=== PATIENT | male | born 1970 | race Caucasian/White ===

== ENCOUNTER → 2017-11-15 10:34 | Outpatient (CLI) | payer BC, SELFPAY ==
--- NOTE | 2017-11-16 09:31 | STRESSREP ---
Stress Test Report Treadmill EKG results: Resting EKG: Normal sinus rhythm, normal axis, normal intervals, no evidence of previous myocardial infarction. Treadmill EKG: The patient exercise according to Roosevelt protocol for 9 minutes and 1 second achieving a workload of 10.40 mets. Resting heart rate was initially 76 bpm jan to maximum 157 bpm which represents 91% of the maximal age-predicted heart rate. Resting blood pressure was 138/90, and jan to max of 164/84. Test was terminated due to the attainment of target heart rate and calf pain. During exercise the patient's heart rate increased as expected. Patient had no dynamic EKG changes to suggest ischemia. No anginal symptoms noted. Conclusions normal, adequate, treadmill EKG. Negative for ischemia by EKG criteria. No anginal symptoms noted. No arrhythmias noted. Appropriate blood pressure response to exercise. Average exercise capacity for age. No complications.
--- NOTE | 2017-11-16 09:34 | STRESSREP_ITS ---
Stress Test Report Treadmill EKG results: Resting EKG: Normal sinus rhythm, normal axis, normal intervals, no evidence of previous myocardial infarction. Treadmill EKG: The patient exercise according to Roosevelt protocol for 9 minutes and 1 second achieving a workload of 10.40 mets. Resting heart rate was initially 76 bpm jan to maximum 157 bpm which represents 91% of the maximal age -predicted heart rate. Resting blood pressure was 138/90, and jan to max of 164/84. Test was terminated due to the attainment of target heart rate and calf pain. During exercise the patient's heart rate increased as expected. Patient had no dynamic EKG changes to suggest ischemia. No anginal symptoms noted. Conclusions normal, adequate, treadmill EKG. Negative for ischemia by EKG criteria. No anginal symptoms noted. No arrhythmias noted. Appropriate blood pressure response to exercise. Average exercise capacity for age. No complications.
== END ==
DX: R07.9 Chest pain, unspecified (principal); I10 Essential (primary) hypertension; R42 Dizziness and giddiness; R53.83 Other fatigue
CPT/HCPCS: 93017

== ENCOUNTER 2018-05-20 09:43 | Emergency (ER) | payer OTHER, BC, SELFPAY ==
[2018-05-20 09:43] VITALS: BP 162/98; PULSE 84; RESP 18; TEMP 36.4; O2SAT 98; BMI 39.5
--- NOTE | 2018-05-20 10:07 | RAD_ITS ---
STUDY: X-RAY - RIGHT RADIUS AND ULNA REASON FOR EXAM: Male, 47 years old. Pain following injury. TECHNIQUE: 2 view(s) of the forearm. COMPARISON: None. FINDINGS: There is non-specific soft tissue swelling. Normal visualized radius. Normal visualized ulna. RAD/Forearm 2 Views IMPRESSION: Soft tissue swelling. Electronically Signed: Lane Inman MD at 10:16 EST Tel [phone], Service support ,
--- NOTE | 2018-05-20 10:36 | ED.VISSUMM ---
- ER Visit Summary Date of Service: 05/20/18 Chief Complaint: [right forearm injury] History of Present Illness: The patient is a 47 M [that presents after he fell at work landing on a pipe injuring his right forearm. He did not hit his head or neck or have any loss of consciousness. He denies any other trauma or injury. He has obvious soft tissue swelling to his right mid lateral forearm. No significant pain with range of motion. Tetanus up-to-date. No other complaints.] Physical Examination: [General: The patient appears well and in no apparent distress. Patient is resting comfortably on cart. Skin: Warm, dry, no pallor noted. No rash. Abrasion right forearm with soft tissue swelling. Head: Normocephalic, atraumatic Neck: Supple, nontender. FROM. ENT: Moist mucus membranes, pharynx within normal limits. Cardiovascular: Regular Rate and Rhythm, no gallups or rubs Respiratory: Patient is in no distress, no accessory muscle use, lungs are clear to auscultation, no wheezing, rales or rhonchi Musculoskeletal: normal ROM, no deformity, no tenderness, no swelling. 2+ radial and DP pulses symmetric. Soft tissue swelling mid right lateral forearm. All compartments soft. No significant pain with range of motion. No bruising or ecchymosis. GI: No tenderness to palpation, no masses appreciated. No rebound, guarding, or rigidity noted. Neurological: A&O, normal strength and sensation. 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 Xray shows soft tissue swelling but no acute fractures. Wound will be cleaned, irrigated, and dressed. It does not require repair and is consistent with more of an abrasion. He will follow with corporate care and I will write him return to work with limited use of right arm for 1 day. He was instructed to return with any new or worsening symptoms. Patient understands and is agreeable with this plan of care. Patient was discharged home in stable and improved condition.] Treatment Plan: [see above] Disposition: [discharge home] Impression: [Right forearm contusion and abrasion] This note was generated with [employer] software. It may contain incorrect words, spelling, and punctuation that were not noted in review of the chart prior to signing ED Disposition - Plan for ED Patient: Disposition: Home or Assisted Living Chief Complaint: Upper Extremity Injury Instructions: ED Contusion Upper Ext Referrals: Corporate,[facility] [GROUP OF PHYSICIANS] -
--- NOTE | 2018-05-20 10:40 | ED.DCSUM_ITS ---
- ER Visit Summary Date of Service: 05/20/18 Chief Complaint: [right forearm injury] History of Present Illness: The patient is a 47 M [that presents after he fell at work landing on a pipe injuring his right forearm. He did not hit his head or neck or have any loss of consciousness. He denies any other trauma or injury. He has obvious soft tissue swelling to his right mid lateral forearm. No significant pain with range of motion. Tetanus up-to-date. No other complaints.] Physical Examination: [General: The patient appears well and in no apparent distress. Patient is resting comfortably on cart. Skin: Warm, dry, no pallor noted. No rash. Abrasion right forearm with soft tissue swelling. Head: Normocephalic, atraumatic Neck: Supple, nontender. FROM. ENT: Moist mucus membranes, pharynx within normal limits. Cardiovascular: Regular Rate and Rhythm, no gallups or rubs Respiratory: Patient is in no distress, no accessory muscle use, lungs are clear to auscultation, no wheezing, rales or rhonchi Musculoskeletal: normal ROM, no deformity, no tenderness, no swelling. 2+ radial and DP pulses symmetric. Soft tissue swelling mid right lateral forearm. All compartments soft. No significant pain with range of motion. No bruising or ecchymosis. GI: No tenderness to palpation, no masses appreciated. No rebound, guarding, or rigidity noted. Neurological: A&O, normal strength and sensation. 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 Xray shows soft tissue swelling but no acute fractures. Wound will be cleaned, irrigated, and dressed. It does not require repair and is consistent with more of an abrasion. He will follow with corporate care and I will write him return to work with limited use of right arm for 1 day. He was instructed to return with any new or worsening symptoms. Patient understands and is agreeable with this plan of care. Patient was discharged home in stable and improved condition.] Treatment Plan: [see above] Disposition: [discharge home] Impression: [Right forearm contusion and abrasion] This note was generated with [employer] software. It may contain incorrect words, spelling, and punctuation that were not noted in review of the chart prior to signing ED Disposition - Plan for ED Patient: Disposition: Home or Assisted Living Chief Complaint: Upper Extremity Injury Instructions: ED Contusion Upper Ext Referrals: Corporate,[facility] [GROUP OF PHYSICIANS] -
== END 2018-05-20 10:57 | disposition home or self-care (01) ==
PROVIDERS: Emergency Provider Emergency Medicine; Family Provider Family Medicine; PCP Family Medicine
DX: S50.11XA Contusion of right forearm, initial encounter (principal); W01.10XA Fall on same level from slipping, tripping and stumbling with subsequent striking against unspecified object, initial encounter; Y93.9 Activity, unspecified; Y92.89 Other specified places as the place of occurrence of the external cause; Y99.0 Civilian activity done for income or pay; I10 Essential (primary) hypertension; Z79.899 Other long term (current) drug therapy
CPT/HCPCS: 73090; 99283

== ENCOUNTER → 2018-08-01 12:08 | Outpatient (CLI) | payer BC, SELFPAY | PROVIDERS: Family Provider Family Medicine; PCP Family Medicine; Referring Provider Family Medicine | DX: G47.33 Obstructive sleep apnea (adult) (pediatric) (principal) | CPT/HCPCS: 95806 ==

== ENCOUNTER → 2018-09-13 11:00 | Outpatient (CLI) | payer BC, SELFPAY ==
[2018-08-21 12:08] VITALS: BMI 39.6
== END ==
PROVIDERS: Family Provider Family Medicine; PCP Family Medicine; Referring Provider Nurse Practitioner Acute Care; Visit Provider Nurse Practitioner Acute Care
DX: Z00.00 Encounter for general adult medical examination without abnormal findings (principal)

== ENCOUNTER 2019-05-04 14:07 | Emergency (ER) | payer BC, SELFPAY ==
[2018-08-21 12:08] VITALS: BMI 39.6
[2019-05-04 14:08] VITALS: BP 160/89; PULSE 81; RESP 16; TEMP 36.4; O2SAT 98; BMI 39.5
--- NOTE | 2019-05-04 14:17 | ED.VIS.GEN ---
History of Present Illness <Yumi Goldstein - Last Filed: 05/04/19 14:31> Narrative: 48-year-old male presents with concern for left thigh tingling and pain. 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 States he is here today because he wanted to make sure he did not have a blood clot. States that 2 weeks ago he had a right shoulder replacement and has been taking aspirin since that time but wanted to be seen to rule out a DVT. States this is the same pain that he had before is just worsened. States he has been very sedentary and sitting around in a chair. He denies any swelling or trauma. Denies any fever or chills. Denies any history of DVT or pulmonary embolism. <Ronnell Cintron - Last Filed: 05/04/19 14:40> Chief Complaint: Lower Extremity Injury Past Medical History <Yumi Goldstein - Last Filed: 05/04/19 14:31> Prior records reviewed: Yes Past Medical History: None Surgical History: - - Shoulder replacement Smoking Status: Former smoker <Ronnell Cintron - Last Filed: 05/04/19 14:40> - Allergies and Home Meds Allergies/Adverse Reactions: Allergies No Known Allergies Allergy (Verified 08/21/18 14:53) Primary Care Physician: Steven Sandy MD [Primary Care Provider] - Review of Systems General: Denies: Chills, Fever, Sweats Eyes: Denies: Visual changes - bilaterally, Diplopia ENT: Denies: Rhinorrhea, Sore throat Cardiovascular: Denies: Chest pain, Palpitations Respiratory: Denies: Dyspnea, Cough, Dyspnea on exertion Gastrointestinal: Denies: Abdominal pain, Nausea, Vomiting, Diarrhea, Melena, Hematochezia Genitourinary: Denies: Dysuria, Hematuria, Frequency Musculoskeletal: Reports: Myalgias. Denies: Back pain, Extremity Pain Skin: Denies: Rash, Wounds Neurological: Denies: Headache, Weakness, Numbness <Ronnell Cintron - Last Filed: 05/04/19 14:40> Physical Exam Vital Signs/Narrative: Vital Signs Temp Pulse Resp BP Pulse Ox 05/04/19 14:08 97.6 F L 81 16 160/89 H 98 <Yumi Goldstein - Last Filed: 05/04/19 14:31> Vital Signs/Narrative: Vital Signs Temp Pulse Resp BP Pulse Ox 05/04/19 14:08 97.6 F L 81 16 160/89 H 98 General: Well nourished, Well developed, No Acute Distress Head: Normocephalic, Atraumatic Eyes: Perrl, EOMI ENT: Moist mucous membranes, No rhinorrhea Neck: Supple, Nontender Cardiovascular: Regular rate, Regular rhythm, No murmurs Respiratory: No distress, CTA bilaterally, Chest nontender Abdomen: Soft, Nontender, Nondistended, Normal bowel sounds Back: Nontender, Normal Inspection Extremities: Nontender, No edema Skin: Normal color, No rash Neurological: Alert, Oriented x3, Cranial nerves II-XII grossly intact, Normal Strength, Normal Sensation Psychological: Normal affect, Normal Mood <Ronnell Cintron - Last Filed: 05/04/19 14:40> Diagnostic/Tx/Re-eval - Medical Decision Making Patient was seen with Dr. Wilburn agree with history and physical as above, the patient is complaining of a pain to the left lateral thigh that he has had intermittently it seems worse after he had a recent right shoulder surgery he has no other complaints no fever no cough no chest pain abdominal pain history of [place] PE or DVT on exam of the left thigh area laterally is unremarkable he has full range of motion of the left lower extremity he has no signs of DVT no edema discussed all the above with him at this time please refer to the full chart for full details and disposition the patient is comfortable discharge home follow-up with his outpatient providers and orthopedic surgeons <Yumi Goldstein - Last Filed: 05/04/19 14:31> - Medical Decision Making Appears well nontoxic. Vital signs within normal limits. Likely has continued lateral femoral nerve syndrome. Was advised on weight reduction. Patient will follow-up with his primary care provider or his orthopedist for this issue. Naproxen for home. Patient agreeable and discharged home in stable condition. 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
[2019-05-04 14:38] VITALS: RESP 16
--- NOTE | 2019-05-04 14:39 | ED.RN ---
REVIEWED D/C INSTRUCTIONS, FOLLOW UP CARE, PRESCRIPTION, AND S/S THAT WOULD WARRANT A RETURN TO THE ED WITH PT. PT VERBALIZED AN UNDERSTANDING AND DENIES FURTHER QUESTIONS FOR THIS RN. PT SKIN P/W/D, RESP EVEN AND UNLABORED, PT A&O X 3, NO DISTRESS NOTED. PT AMBULATED OUT OF ED, GAIT STEADY.
== END 2019-05-04 14:41 | disposition home or self-care (01) ==
LOC: ED 14:32
PROVIDERS: Emergency Provider Emergency Medicine; Family Provider Family Medicine; PCP Family Medicine
DX: G57.22 Lesion of femoral nerve, left lower limb (principal); Z87.891 Personal history of nicotine dependence
CPT/HCPCS: 99282

== ENCOUNTER 2019-09-03 11:05 | Observation (INO) | payer BC, SELFPAY ==
[2019-09-03] VITALS (9 sets, daily range): BP systolic 125–141; BP diastolic 77–97; PULSE 63–91; RESP 13–18; TEMP 36.4–36.9; O2SAT 95–99; BMI 42.5; BMI 41.1
--- NOTE | 2019-09-03 11:13 | ED.VIS.GEN ---
History of Present Illness Chief Complaint: Chest Pain Informant: Patient Onset: Today Current Severity: Mild Maximum Severity: Moderate Narrative: Patient present secondary to chest pain. He was at work this morning, squatted down using a didier to raise a semitruck. Patient states he developed some chest tightness. He stood up and walked around for little bit and the pain abated. He went back to using the didier again and developed chest pain again. After walking around and drinking little bit of water he states pain has lessened but not completely resolved. Pain does not radiate down his arms. He denies shortness of breath or diaphoresis. He did state he felt a little bit woozy which she later describes as lightheadedness after standing. Patient denies history of cardiac problems. He had a stress test in October 2017 that was unremarkable. - Past Medical History (1) High cholesterol Status: Chronic (2) MARIA DOLORES (obstructive sleep apnea) Status: Chronic (3) Obesity (BMI 30-39.9) Status: Chronic (4) Staghorn kidney stones Status: Chronic Past Medical History - Allergies and Home Meds Allergies/Adverse Reactions: Allergies No Known Allergies Allergy (Verified 09/03/19 11:07) Primary Care Physician: Steven Sandy MD [Primary Care Provider] - Prior records reviewed: Yes Surgical History: - - Shoulder replacement Lives: Spouse/ Significant Other Smoking Status: Former smoker Review of Systems General: Denies: Chills, Fever Eyes: Denies: Visual changes - bilaterally ENT: Denies: Bilateral ear pain Cardiovascular: Reports: Chest pain. Denies: Palpitations, Heart racing Respiratory: Denies: Dyspnea, Cough Gastrointestinal: Denies: Abdominal pain, Nausea, Vomiting, Diarrhea Genitourinary: Denies: Dysuria Musculoskeletal: Denies: Neck pain, Back pain, Extremity Pain Skin: Denies: Rash Neurological: Denies: Headache Hematologic: Denies: Easy bruising, Easy bleeding Allergy: Denies: Uticaria Physical Exam Vital Signs/Narrative: Vital Signs Temp Pulse Resp BP Pulse Ox 09/03/19 11:05 98.4 F 91 16 138/85 H 95 Inital Vital Signs reviewed: Yes General: Well nourished, Well developed Head: Normocephalic ENT: Moist mucous membranes Neck: Supple Cardiovascular: Regular rate, Regular rhythm Respiratory: No distress, CTA bilaterally, Chest nontender Abdomen: Soft, Tender - Mild epigastric tenderness., Hypoactive bowel sounds. Negative for: Guarding, Rebound tenderness Skin: Normal color Neurological: Alert, Oriented x3 Psychological: Normal affect Diagnostic/Tx/Re-eval Impressions Chest X-Ray 09/03/19 11:30 IMPRESSION: Stable examination. No acute abnormality is seen. Electronically Signed: Lane Inman, at 11:48 EDT , Service support , 09/03/19 11:30 Chest 1 View (Portable) [RAD] Stat Laboratory Results 09/03/19 09/03/19 11:18 11:18 WBC 5.8 RBC 4.88 Hgb 14.7 Hct 42.2 MCV 86.5 MCH 30.1 MCHC 34.8 RDW Std Deviation 40.2 RDW Coeff of Sima 12.9 Plt Count 252 MPV 10.2 Immature Gran % (Auto) 0.200 Neut % (Auto) 56.1 Lymph % (Auto) 30.3 [place] % (Auto) 9.1 Eos % (Auto) 3.6 Baso % (Auto) 0.7 Absolute Neuts (auto) 3.3 Absolute Lymphs (auto) 1.76 Nucleated RBC % 0 Sodium 142 Potassium 3.6 Chloride 108 H Carbon Dioxide 30.0 Anion Gap 4 L BUN 21 H Creatinine 1.06 Estim Creat Clear Calc 80.66 Est GFR (MDRD) Af Amer 95 Est GFR (MDRD) Non-Af 79 BUN/Creatinine Ratio 19.8 Glucose 107 H Calcium 9.4 Troponin I < 0.015 - EKG Initial EKG Interpretation: Sinus Rhythm - Sinus 81 with no acute ischemia. - Medical Decision Making Patient was given aspirin, morphine, and Zofran here. Patient does not have reproducible chest wall pain. We discussed his test results and he is agreed to overnight observation for cycling of cardiac enzymes. ED Disposition - Plan for ED Patient: Disposition: Acute Care Hospital [facility] Diagnosis: Chest pain Referrals: Steven Sandy MD [Primary Care Provider] -
[2019-09-03 11:25] LABS: Absolute Lymphocyte Count 1.76 X10^3/uL (0.83-4.51); Absolute Neutrophil Count 3.3 X10^3/uL (2.0-7.7); Basophil# 0.04 X10^3/uL; Basophil% 0.7 % (0-1); Eosinophil# 0.21 X10^3/uL; Eosinophils% 3.6 % (0-5); Hematocrit 42.2 % (40-54); Hemoglobin 14.7 g/dL (13.0-16.5); Lymphocyte # 1.76 X10^3/ul (4.0); Lymphocyte % 30.3 % (19-41); Mean Corp Hgb Conc 34.8 g/dL (32-36); Mean Corpuscular Hgb 30.1 pg (27.0-32.0); Mean Corpuscular Volume 86.5 fL (80-94); Mean Platelet Vol. 10.2 fl (6.2-12.0); Monocyte# 0.53 X10^3/uL; Monocyte% 9.1 % (0-10); NRBC Flagged by Analyzer 0 % (0-5); Neutrophil # 3.25 X10^3/uL (2.7-7.7); Neutrophil % 56.1 % (47-70); Platelet Count 252 K/mm3 (150-450); RBC Distribution Width CV 12.9 % (11.6-14.6); RBC Distribution Width SD 40.2 fl (35.1-43.9); Red Blood Count 4.88 M/mm3 (4.6-6.2); White Blood Count 5.8 K/mm3 (4.4-11.0)
--- NOTE | 2019-09-03 11:30 | RAD_ITS ---
STUDY: X-RAY CHEST REASON FOR EXAM: Male, 49 years old. Dull left sided chest pain, felt and quot; woozy and quot; TECHNIQUE: Single AP portable view of the chest. COMPARISON: Comparison is made with prior study February 27, 2014. FINDINGS: EKG electrodes are seen. There is evidence of an azygous lobe. Once again, a linear opacity seen along the medial aspect of the right upper lobe adjacent to the azygos lobe. This may represent an area of scarring. There is no demonstrated pleural abnormality. Normal size heart. Normal mediastinum and joana. Normal visualized pulmonary arteries. Normal visualized aortic arch and descending thoracic aorta. Normal visualized thoracic spine. Normal visualized ribs, clavicles, and shoulders. There is no demonstrated abnormality of the visualized soft tissue structures of the upper abdomen. RAD/Chest 1 View (Portable) IMPRESSION: Stable examination. No acute abnormality is seen. Electronically Signed: Lane Inman, at 11:48 EDT , Service support ,
[2019-09-03] MEDS: Aspirin 81 MG TAB.CHEW 324 MG PO (11:33)
[2019-09-03 11:42] LABS: Anion Gap 4 (5-15); BUN 21 mg/dL (7-18); BUN/Creat Ratio 19.8 RATIO (10-20); Calcium,Total 9.4 mg/dL (8.5-10.1); Chloride 108 mmol/L (98-107); Creatinine, Serum 1.06 mg/dL (0.70-1.30); EST Glomerular Filtration Rate 79 mL/min (>60); Est Glom Filt Rate - Afr Amer 95 mL/min (>60); Estimated Creatinine Clearance 80.66 ml/min; Glucose 107 mg/dL (74-106); Potassium 3.6 mmol/L (3.5-5.1); Sodium Level 142 mmol/L (136-145)
[2019-09-03] MEDS: 0.9% Normal Saline 1,000 ML 150 ML IV (11:48)
--- NOTE | 2019-09-03 12:39 | NURSING ---
DR ORTIZ FOR DR BETHEA
--- NOTE | 2019-09-03 12:46 | HP.PCM_ITS ---
History of Present Illness Date of Admission: 09/03/19 Chief Complaint: chest pain The patient is a 49 year old M with a past medical history of hypertension and hyperlipidemia. He was admitted through the ED on 09/03/2019 with a complaint of chest pain was started on the day of admission. 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 In the process, he started having severe chest pain so he stopped. He rested a bit and chest pain got better. On attempting to check of the 18 arroyo again, chest pain recurred and was associated with increased sweating and some lightheadedness but no palpitations, dizziness, nausea vomiting. Patient states he has not had chest pain like this in the past. Chest pain was sharp retrosternal and did not radiate. On admission in the ED, vitals were stable. CBC was unremarkable and initial troponin was negative. EKG showed normal sinus rhythm with no acute ST changes and chest x-ray showed no acute cardiopulmonary process. He has been admitted to be managed for chest pain rule out ACS. [] Past Medical History Past Medical History (Chronic Problems): Chronic Problems (Last Reviewed 08/21/18 @ 15:00 by Shira Amos NP-C) High cholesterol (Chronic) MARIA DOLORES (obstructive sleep apnea) (Chronic) Obesity (BMI 30-39.9) (Chronic) Staghorn kidney stones (Chronic) Medical History: Medical History (Last Reviewed 08/21/18 @ 15:00 by Shira Amos NP-C) Dyslipidemia E78.5 Elevated fasting blood sugar R73.01 GERD (gastroesophageal reflux disease) K21.9 Hypospadias Q54.9 Kidney stone N20.0 Reconstruction of L face Sleep apnea G47.30 Hypertension I10 Allergies No Known Allergies Allergy (Verified 09/03/19 11:07) Home Medications: Ambulatory Orders Medication Instructions Recorded Lisinopril [Zestril] 40 mg PO BID 01/23/14 Hydrochlorothiazide 1 tab PO DAILY 05/20/18 Surgical History: Surgical History (Last Reviewed 08/21/18 @ 15:00 by Shira Amos NP-C) H/O lithotripsy Z98.890 History of arthroscopy of both knees Z98.890 History of shoulder surgery Z98.890 LEFT SHOULDER Surgical History: - - Shoulder replacement Lives: Spouse/ Significant Other Smoking Status: Former smoker Alcohol: None Drugs: None - *Family History Maternal Family History: Family History (Last Reviewed 08/21/18 @ 15:00 by CHRISTINE Ye) Brother Testicular cancer Review of Systems Constitutional: Denies: Chills, Fever, Malaise, Weakness, Weight Change Eyes: Denies: Blurred vision HEENT: Denies: Head Aches, Sinus Congestion, Sinus Drainage Cardiovascular: Reports: Chest Pain. Denies: Chest Pressure, Chest Tightness, Heaviness, Light Headedness, Orthopnea, Palpitations, Syncope Respiratory: Denies: Cough, Shortness of Breath, Shortness of breath at rest, Sputum production Gastrointestinal: Denies: Abdominal Pain, Nausea, Vomiting Genitourinary: Denies: Dysuria Musculoskeletal: Denies: Joint Pain, Joint Tenderness Skin: Denies: Rash, Wounds Neurological: Denies: Numbness, Tingling, Focal weakness Psychiatric: Denies: Anxiety, Depression, Homicidal Ideations, Suicidal Ideations Hematologic/ Lymphatic: Denies: Easy Bruising, Easy Bleeding VTE Information - Inpt Only VTE Present on Admission: No VTE Pharm Prophylaxis ordered?: Yes Patient Problems: Active and Suspected Problems (Last Reviewed 08/21/18 @ 15:00 by CHRISTINE Ye) Chest pain (Acute) - Physical Exam Vitals/I&O's: Vital Signs Temp Pulse Resp BP Pulse Ox 98.4 F 91 16 138/85 H 95 09/03/19 11:05 09/03/19 11:05 09/03/19 11:05 09/03/19 11:05 09/03/19 11:05 Oxygen Flow Rate (L/min) 2 Oxygen Delivery Method Nasal Cannula Weight: 279 lb 12.266 oz Body Mass Index (BMI) 42.5 General: Alert, Oriented x3, Cooperative HEENT: Atraumatic, PERRLA, EOMI, Normocephalic Oral: Moist Mucosa Neck: Supple, No JVD, Negative Carotid Bruits Lungs: Clear to auscultation, Normal air movement, No rhonchi, No wheeze Cardiovascular: Regular rate, Regular Rhythm, Normal S1, Normal S2, No murmurs Abdomen: Bowel Sounds Present, Soft, Non Tender, Non-Distended, No Hepato-sp lenomegaly Extremities: No clubbing, No cyanosis, No edema, Capillary Refill Less than 3 Seconds Skin: No rashes, No breakdown Musculoskeletal: No Tenderness to Palpation of Joints or Extremities Lymphatic: No Cervical, Supraclavicular, or Inguinal Adenopathy Neurological: Cranial nerves II-XII grossly intact, Neuro grossly intact, Motor Exam 5/5 strength throughout Psych/Mental Status: Normal Affect, Appropriate, Alert and oriented to time, place, person, mood and affect Laboratory Results 09/03/19 11:18: WBC 5.8, RBC 4.88, Hgb 14.7, Hct 42.2, MCV 86.5, MCH 30.1, MCHC 34.8, RDW Std Deviation 40.2, RDW Coeff of Sima 12.9, Plt Count 252, MPV 10.2, Immature Gran % (Auto) 0.200, Neut % (Auto) 56.1, Lymph % (Auto) 30.3, [place] % (Auto) 9.1, Eos % (Auto) 3.6, Baso % (Auto) 0.7, Absolute Neuts (auto) 3.3, Absolute Lymphs (auto) 1.76, Nucleated RBC % 0 09/03/19 11:18: Sodium 142, Potassium 3.6, Chloride 108 H, Carbon Dioxide 30.0, Anion Gap 4 L, BUN 21 H, Creatinine 1.06, Estim Creat Clear Calc 80.66, Est GFR (MDRD) Af Amer 95, Est GFR (MDRD) Non-Af 79, BUN/Creatinine Ratio 19.8, Glucose 107 H, Calcium 9.4, Troponin I < 0.015 Diagnostic Data Chest X-Ray 09/03/19 11:30 IMPRESSION: Stable examination. No acute abnormality is seen. Electronically Signed: Lane Inman, at 11:48 EDT , Service support , Current Medications Sodium Chloride () 1,000 mls @ 150 mls/hr IV .[id number] [facility] Last Admin: 09/03/19 11:48 Dose: 150 mls/hr Documented by: Assessment/Plan All Active Problems (Last Reviewed 08/21/18 @ 15:00 by Shira Amos, ARNOLDO-C) Chest pain (Acute) Vertigo (Acute) 49 y.o male admitted with a complaitn of chest pain 1. Chest pain to r/o ACS * Admit to PCU telemetry * Cycle troponins x3. * Sublingual nitro as needed. P.O. aspirin 81 mg daily. * for stress test tomorrow if troponins are negative * 2. Hypertension: on HCTZ and lisinopril. Bp fairly well controlled 3. Hyperlipidemia: not on any oral meds. Check lipid panel DVT prophylaxis: lovenox Code status: full code * Patient counseled extensively about different types of CODE STATUS including full code, DNR CCA and DNR CCA. Patient elects to be full code. * Total [id number] time 16 minutes. OBSV E&M: 20963 Initial observation care L2 Procedures: 17674 Advncd Care Plan 30 Min
--- NOTE | 2019-09-03 13:59 | EKG12_ITS ---
Test Reason : CP ADMISSION EKG Blood Pressure : / mmHG Vent. Rate : 079 BPM Atrial Rate : 079 BPM P-R Int : 166 ms QRS Dur : 110 ms QT Int : 426 ms P-R-T Axes : 055 -19 013 degrees QTc Int : 488 ms Normal sinus rhythm Prolonged QT Abnormal ECG When compared with ECG of 03-SEP-2019 11:11, MANUAL COMPARISON REQUIRED, DATA IS UNCONFIRMED Confirmed by ANDERSON BAILEY, ELICIA ([id number]), editor book BECCA ALAMO ([id number]) on 09/09/2019 9:25:22 AM Referred By: DIANA Confirmed By:ТАТЬЯНА BARRON MD
[2019-09-04 03:05] VITALS: PULSE 70
[2019-09-04 04:00] VITALS: BP 120/85; PULSE 72; RESP 16; TEMP 36.4; O2SAT 94
[2019-09-04 05:32] LABS: Absolute Lymphocyte Count 1.95 X10^3/uL (0.83-4.51); Absolute Neutrophil Count 2.9 X10^3/uL (2.0-7.7); Basophil# 0.03 X10^3/uL; Basophil% 0.5 % (0-1); Eosinophil# 0.35 X10^3/uL; Eosinophils% 6.1 % (0-5); Hemoglobin 14.3 g/dL (13.0-16.5); Lymphocyte # 1.95 X10^3/ul (4.0); Lymphocyte % 33.8 % (19-41); Mean Corpuscular Hgb 29.7 pg (27.0-32.0); Mean Corpuscular Volume 87.1 fL (80-94); Mean Platelet Vol. 10.2 fl (6.2-12.0); Monocyte# 0.53 X10^3/uL; Monocyte% 9.2 % (0-10); NRBC Flagged by Analyzer 0 % (0-5); Neutrophil % 50.2 % (47-70); Platelet Count 241 K/mm3 (150-450); RBC Distribution Width CV 13.1 % (11.6-14.6); RBC Distribution Width SD 40.9 fl (35.1-43.9); Red Blood Count 4.82 M/mm3 (4.6-6.2); White Blood Count 5.8 K/mm3 (4.4-11.0)
[2019-09-04 05:51] LABS: Anion Gap 4 (5-15); BUN 19 mg/dL (7-18); BUN/Creat Ratio 19.7 RATIO (10-20); Chloride 107 mmol/L (98-107); Creatinine, Serum 0.96 mg/dL (0.70-1.30); EST Glomerular Filtration Rate 88 mL/min (>60); Est Glom Filt Rate - Afr Amer 106 mL/min (>60); Estimated Creatinine Clearance 89.06 ml/min; Glucose 136 mg/dL (74-106); Potassium 3.5 mmol/L (3.5-5.1); Sodium Level 140 mmol/L (136-145)
[2019-09-04] MEDS: Aspirin E.C. 81 MG Tablet PO (06:24)
[2019-09-04] MEDS: Lisinopril 40 MG Tablet PO (06:24)
[2019-09-04 07:00] VITALS: PULSE 74
[2019-09-04 10:34] VITALS: BP 111/89; PULSE 88; RESP 16; TEMP 36.9; O2SAT 94
[2019-09-04] MEDS: hydroCHLOROthiazide 25 MG Tablet 50 MG PO (10:40)
--- NOTE | 2019-09-04 11:04 | STRESSREP_ITS ---
Stress Test Report Date: 09/04/2019 Procedure: Exercise tolerance test/imaging study Indications: Chest pain Consent: Per the patient Procedure: The patient exercised on a Roosevelt protocol for 7 minutes and 30 seconds achieving a peak heart rate of 173 bpm (101 % predicted maximal heart rate) with a peak blood pressure 180/88 mmHg and a peak MET capacity of 9.3 METs. The baseline ECG demonstrated normal sinus rhythm. The peak exercise ECG demonstrated no significant ST-T changes. EKG during recovery revealed no significant ST-T changes [There were no cardiac dysrhythmias pretest, during exercise, or recovery]. The functional capacity was considered normal for age. There was [no complaint of chest discomfort during exercise or recovery]. The examination was discontinued secondary to dyspnea, calf pain. Impression: 1. Technically adequate (percent predicted maximal heart rate greater than 85%) exercise tolerance test 2. Stress test is negative for exercise-induced EKG changes of ischemia 3. The test test is negative for exercise-induced chest pain 4. Functional capacity is normal for age 5. Nuclear images pending Myocardial perfusion imaging study: Technique: The patient was injected with 15 mCi of technetium 99m Cardiolite and subsequently rest SPECT Cardiolite nuclear imaging was obtained in the horizon edwina long, vertical long, and short axis views. The patient exercised on a Roosevelt protocol. Please see above for details. The patient was injected with 45 mCi of technetium 99m Cardiolite and subsequently stress SPECT Cardiolite nuclear imaging was obtained in the horizontal long, vertical long, and short axis views. A gated Cardiolite study at peak stress was obtained. Interpretation: Rest and stress SPECT Cardiolite nuclear imaging status post realignment, normalization, and attenuation correction, demonstrates overall normal myocardial radioisotope uptake. The gated Cardiolite study demonstrates no significant regional wall motion abnormalities. The reported LVEF is 57 %. Impression: 1. There is no evidence of significant ischemia or infarction. 2. The gated Cardiolite study reports an LVEF of 57 %. This note was generated with Emergency [employer] software. It may contain incorrect words, spelling, and punctuation that were not noted in checking the note before signing.
--- NOTE | 2019-09-04 11:28 | DS.PCM_ITS ---
Discharge Date and Diagnosis - Problem List Patient Problems: Active and Suspected Problems (Last Reviewed 08/21/18 @ 15:00 by CHRISTINE Ye) Chest pain (Acute) Date of Admission: 09/03/19 Date of Discharge: 09/04/19 - Primary Discharge Diagnosis Active and Suspected Problems (Last Reviewed 08/21/18 @ 15:00 by CHRISTINE Ye) Chest pain (Acute) - Secondary Discharge Diagnosis Chronic Problems (Last Reviewed 08/21/18 @ 15:00 by CHRISTINE Ye) High cholesterol (Chronic) MARIA DOLORES (obstructive sleep apnea) (Chronic) Obesity (BMI 30-39.9) (Chronic) [place]ag[place] kidney stones (Chronic) Hospital Course and Treatment Imaging Results: 09/04/19 05:55 Nuclear Stress Test - Treadmil [NM] AM (NON MEDS) Operations: None Procedures: Stress test Summary of Care Provided: The patient is a 49 year old M with a past medical history of hypertension and hyperlipidemia. He was admitted through the ED on 09/03/2019 with a complaint of chest pain was started on the day of admission. 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 In the process, he started having severe chest pain so he stopped. He rested a bit and chest pain got better. On attempting to check of the 18 arroyo again, chest pain recurred and was associated with increased sweating and some lightheadedness but no palpitations, dizziness, nausea vomiting. Patient states he has not had chest pain like this in the past. Chest pain was sharp retrosternal and did not radiate. On admission in the ED, vitals were stable. CBC was unremarkable and initial troponin was negative. EKG showed normal sinus rhythm with no acute ST changes and chest x-ray showed no acute cardiopulmonary process. He was admitted to be managed for chest pain rule out ACS. Chest pain did not recur during admission. He has a nuclear exercise stress test on 09/04/2019 which showed no evidence of significant ischemia or infarction with a left ventricular EF of 57%. He remained stable and was discharged home on 09/04/2019. He is to follow-up with his primary care doctor within 1 week. Patient seen and examined prior to discharge. He had no complaints and felt well. Chest pain had not recurred. Review of systems was otherwise negative. Labs and vitals reviewed. Home medication reviewed and reconciled. o/e: Vital Signs Temp Pulse Resp BP Pulse Ox 98.4 F 88 16 111/89 H 94 09/04/19 10:34 09/04/19 10:34 09/04/19 10:34 09/04/19 10:34 09/04/19 10:34 General: Alert, Oriented x3, Cooperative HEENT: Atraumatic, PERRLA, EOMI, Normocephalic Oral: Moist Mucosa Neck: Supple, No JVD, Negative Carotid Bruits Lungs: Clear to auscultation, Normal air movement, No rhonchi, No wheeze Cardiovascular: Regular rate, Regular Rhythm, Normal S1, Normal S2, No murmurs Abdomen: Bowel Sounds Present, Soft, Non Tender, Non-Distended, No Hepato- splenomegaly Extremities: No clubbing, No cyanosis, No edema, Capillary Refill Less than 3 Seconds Skin: No rashes, No breakdown Musculoskeletal: No Tenderness to Palpation of Joints or Extremities Lymphatic: No Cervical, Supraclavicular, or Inguinal Adenopathy Neurological: Cranial nerves II-XII grossly intact, Neuro grossly intact, Motor Exam 5/5 strength throughout Psych/Mental Status: Normal Affect, Appropriate, Alert and oriented to time, place, person, mood and affect Plan as above. Patient Problems: Active and Suspected Problems (Last Reviewed 08/21/18 @ 15:00 by Shira Amos NP-C) Chest pain (Acute) - Physical Exam Vitals/I&O's: Vital Signs Temp Pulse Resp BP Pulse Ox 98.4 F 88 16 111/89 H 94 09/04/19 10:34 09/04/19 10:34 09/04/19 10:34 09/04/19 10:34 09/04/19 10:34 Oxygen Flow Rate (L/min) 2 Oxygen Delivery Method Room Air Weight: 270 lb 4.587 oz Body Mass Index (BMI) 41.1 Intake and Output for Last 24 Hours 09/02/19 09/03/19 09/04/19 23:59 23:59 23:59 Intake Total 852.5 / 852.5 50 / 50 Balance 852.5 / 852.5 50 / 50 Laboratory Results 09/03/19 11:18: Sodium 142, Potassium 3.6, Chloride 108 H, Carbon Dioxide 30.0, Anion Gap 4 L, BUN 21 H, Creatinine 1.06, Estim Creat Clear Calc 80.66, Est GFR (MDRD) Af Amer 95, Est GFR (MDRD) Non-Af 79, BUN/Creatinine Ratio 19.8, Glucose 107 H, Calcium 9.4, Troponin I < 0.015 09/03/19 14:35: Troponin I < 0.015 09/03/19 16:54: Troponin I < 0.015 09/04/19 05:14: WBC 5.8, RBC 4.82, Hgb 14.3, Hct 42.0, MCV 87.1, MCH 29.7, MCHC 34.0, RDW Std Deviation 40.9, RDW Coeff of Sima 13.1, Plt Count 241, MPV 10.2, Immature Gran % (Auto) 0.200, Neut % (Auto) 50.2, Lymph % (Auto) 33.8, Wilson % (Auto) 9.2, Eos % (Auto) 6.1 H, Baso % (Auto) 0.5, Absolute Neuts (auto) 2.9, Absolute Lymphs (auto) 1.95, Nucleated RBC % 0 09/04/19 05:14: Sodium 140, Potassium 3.5, Chloride 107, Carbon Dioxide 29.0, Anion Gap 4 L, BUN 19 H, Creatinine 0.96, Estim Creat Clear Calc 89.06, Est GFR (MDRD) Af Amer 106, Est GFR (MDRD) Non-Af 88, BUN/Creatinine Ratio 19.7, Glucose 136 H, Calcium 9.0 Current Medications Albuterol Sulfate (Ventolin Aerosols) 2.5 mg INHALATION Q2H PRN PRN PRN Reason: SOB/Wheezing Aspirin (Ecotrin) 81 mg PO DAILY@0800 [facility] Last Admin: 09/04/19 06:24 Dose: 81 mg Documented by: Dextrose (D50w Syringe) 0 gm IV X1 PRN; Protocol PRN Reason: Hypoglycemia Glucagon () 1 mg IM .X1 PRN PRN Reason: Hypoglycemia Hydrochlorothiazide (Hctz) 50 mg PO DAILY [facility] Last Admin: 09/04/19 10:40 Dose: 50 mg Documented by: Sodium Chloride () 250 mls @ 15 mls/hr IV .[id number] PRN PRN Reason: Saline Flush Sodium Chloride () 250 mls @ 15 mls/hr IV .[id number] PRN PRN Reason: Additional IVPB Infusion Lisinopril (Zestril) 40 mg PO DAILY [facility] Last Admin: 09/04/19 06:24 Dose: 40 mg Documented by: Nitroglycerin (Nitrostat) 0.4 mg SUBLINGUAL Q5M PRN PRN Reason: CHEST PAIN Ondansetron HCl (Zofran) 4 mg IV Q8H PRN PRN PRN Reason: NAUSEA/VOMITING Sodium Chloride () 10 - 40 ml IV UD PRN PRN Reason: SALINE FLUSH Discharge Diet: Low fat/ Low Cholesterol Discharge Activity: Return to Normal Activity Call your doctor if you observe: Shortness of breath, Dizziness, Fainting spells, Chest pain Home Medications: Medications to take at Discharge Lisinopril [Zestril] 40 mg PO DAILY 01/23/14 Hydrochlorothiazide 1 tab PO DAILY 05/20/18 Primary Care Physician: Steven Sandy MD [Primary Care Provider] - Please follow up with your Primary Care Physician in: 1-2 weeks Patient Instructions: What Is Angina?, Warning Signs of a Heart Attack, ED Chest Pain NonCardiac Disposition: Home Minutes spent on discharge:: 35 Patient Condition:: Stable Medical Necessity - Tobacco Use Smoking Status: Former smoker Meaningful Use Info Meaningful Use Diagnoses (Choose all that apply): None applicable OBSV E&M: [id number] Observation care discharge
--- NOTE | 2019-09-04 11:29 | DCINST_ITS ---
- Discharge Diagnoses Current Active Problems: Current Active and Chronic Problems (Last Reviewed 08/21/18 @ 15:00 by CHRISTINE eY) Chest pain (Acute) You will use the following diet at home:: Cardiac Your food should be the consistency of: Regular Your liquids should be the consistency of: Regular/Thin Discharge Activity: Return to Normal Activity Weight Bearing Status: Weight bearing as tolerated Call your doctor if you observe: Shortness of breath, Dizziness, Chest pain Instructions: Warning Signs of a Heart Attack, ED Chest Pain NonCardiac, What Is Angina? Allergies/Adverse Reactions: Allergies No Known Allergies Allergy (Verified 09/03/19 11:07) Medications to take at Discharge Lisinopril [Zestril] 40 mg PO DAILY 01/23/14 Hydrochlorothiazide 1 tab PO DAILY 05/20/18 Primary Care Physician: Steven Sandy MD [Primary Care Provider] - Please follow up with your Primary Care Physician in: one week Test Results: Test results from this visit will be discussed in further detail at your follow- up appointment, if applicable. Proposed Discharge Date: 09/04/19
== END 2019-09-04 11:29 | disposition home or self-care (01) ==
LOC: ED 12:30 → PCU 09-04 08:27
PROVIDERS: Admitting Provider Student in an Organized Health Care Education/Training Program; Emergency Provider Emergency Medicine; PCP Family Medicine; Visit Provider Student in an Organized Health Care Education/Training Program
DX: R07.89 Other chest pain (principal); R42 Dizziness and giddiness; G47.33 Obstructive sleep apnea (adult) (pediatric); E66.9 Obesity, unspecified; E78.5 Hyperlipidemia, unspecified; K21.9 Gastro-esophageal reflux disease without esophagitis; Z68.41 Body mass index [BMI] 40.0-44.9, adult; Z87.891 Personal history of nicotine dependence; Z79.899 Other long term (current) drug therapy
CPT/HCPCS: 36415; 71045; 78452; 80048; 84484; 85025; 93005; 93017; 96360; 96361; 99218; 99285; A9500; J7030; A4216; G0378; J2405

== ENCOUNTER 2020-11-16 10:11 | Emergency (ER) | payer BC, SELFPAY ==
[2019-09-03 13:27] VITALS: BMI 41.1
[2020-11-16 10:13] VITALS: BP 145/85; PULSE 68; RESP 16; TEMP 36.1; O2SAT 96; BMI 38.9
--- NOTE | 2020-11-16 10:52 | CT_ITS ---
STUDY: CT ABDOMEN AND PELVIS WITH CONTRAST REASON FOR EXAM: Male, 50 years old. Abdominal pain. Diarrhea. Blood in the stool. RADIATION DOSAGE (If Supplied By Facility): CTDIvol = ( 18.65 ) mGy, DLP = ( 1290.51 ) mGycm TECHNIQUE: Transaxial images were obtained from the dome of the diaphragm to the symphysis pubis without oral contrast. Oral and amp; IV Gastrografin and amp; 100mL Isovue-300 was administered. Sagittal and coronal images were reconstructed. Individualized dose optimization techniques were used for this CT. COMPARISON: Comparison is made with prior study dated 04/03/2014. FINDINGS: The visualized lung bases are unremarkable. The visualized portions of the heart are within normal limits. There is decreased attenuation of the liver consistent with steatosis. Normal gallbladder and extrahepatic biliary system. Normal spleen. Normal pancreas. Normal bilateral adrenal glands. Normal right kidney. There is a 5.8 mm nonobstructive calculus in the lower pole calyx of the left kidney. There is evidence of a mild degree of left hydronephrosis and dilated left renal pelvis to the level of the ureteropelvic junction. This may represent scarring at the ureteral pelvic junction. Normal visualized stomach. Normal small intestine. Normal colon. The appendix is visualized and appears normal. Normal abdominal aorta. Normal inferior vena cava. Normal retroperitoneum. Diffuse bladder wall thickening although the bladder is not adequately distended at this time. Normal abdominal wall. There are mild degenerative changes of the visualized lumbar spine. There is evidence of a spondylolysis of the pars interarticularis of the L5 vertebrae. CT/Abdomen/Pelvis WITH Contrast IMPRESSION: Nonobstructive calculus in the lower pole calyx of the left kidney. Mild degree of left hydronephrosis and dilated renal pelvis to the level of the ureteral pelvic junction. Diffuse fatty infiltration of the liver. Electronically Signed: Laen Inman MD at 13:17 EDT , Service support ,
--- NOTE | 2020-11-16 10:53 | EX.ED.DYSGE1 ---
HPI History of Present Illness Chief Complaint: GI Bleed Informant: patient Narrative Narrative: 50-year-old male presents to the emergency room with bright red blood per rectum. Patient states that he has had 3 semiformed bowel movements today and each 1 has had bright red blood. He notes a lower left suprapubic pain. He states it is not bad but knows that it is there. In the past couple months he has been experiencing some intermittent diarrhea and abdominal pain. He also notes some bloating. He did see his family physician for this and is set up to have a CAT scan tomorrow. He denies any rectal pain. No straining or prolonged sitting for bowel movements. 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 No history of colitis. No prior colonoscopy. [facility] Medical History (Updated 11/16/20 @ 13:[address] Ashish Monreal DO) Dyslipidemia Elevated fasting blood sugar GERD (gastroesophageal reflux disease) Hypertension Hypospadias Kidney stone Reconstruction of L face Sleep apnea Home Medications lisinopril 40 mg PO DAILY 01/23/14 [History Last Taken 09/03/19 08:00] hydrochlorothiazide 1 tab PO DAILY 05/20/18 [History Last Taken 09/03/19 08:00] omeprazole 40 mg PO DAILY 11/16/20 [History Last Taken Unknown] potassium chloride 10 meq PO DAILY 11/16/20 [History Last Taken Unknown] Allergy/AdvReac Type Severity Reaction Status Date / Time No Known Allergies Allergy Verified 11/16/20 10:12 Family History (Reviewed 08/21/18 @ 15:00 by Shira Amos COMPOSING MACHINE OPERATOR/TENDER, COMPOSING MACHINE OPERATOR/TENDER-C) Brother Testicular cancer Surgical History H/O lithotripsy History of arthroscopy of both knees History of shoulder surgery Social History (Updated 11/16/20 @ 10:[address] Ashish Monreal DO) Smoking Status: Former smoker substance use type: does not use ROS ROS ED Constitutional Constitutional ED: Denies chills or weight loss Eyes Eyes: Denies change in vision or diplopia ENT ENT ED: Denies ear pain, rhinorrhea or sore throat Cardiovascular Cardiovascular: Denies chest pain, orthopnea, palpitations or racing heartbeat Respiratory/Chest Respiratory/Chest: Denies cough, dyspnea or orthopnea Gastrointestinal Gastrointestinal: Reports abdominal pain and other Details: Hematochezia ; Denies diarrhea, nausea or vomiting Genitourinary Genitourinary ED: Denies dysuria, hematuria or urinary frequency Musculoskeletal Musculoskeletal: Denies arthralgias or myalgias Integumentary Denies abscess or rash Neurologic Neurologic: Denies headache(s) or weakness Psychiatric Psychiatric: Denies anxiety, depression, suicidal ideation or suicidal thoughts Endocrine Endocrinology: Denies polydipsia, polyphagia or polyuria Allergic/Immunologic Allergic/Immunologic ED: Denies mouth swelling, tongue swelling or urticaria EXAM Physical Exam Const Vital Signs: 11/16/20 10:13 11/16/20 13:02 Temperature 97.0 F L Temperature Source Temporal Pulse Rate 68 64 Respiratory Rate 16 15 Blood Pressure 145/85 H 129/81 H Blood Pressure Mean 105 97 Pulse Ox 96 96 Oxygen Delivery Method Room Air Room Air Positive well nourished, well developed and obese General Appearance ED: well developed Nutritional Appearance: obese HEENT Reports normocephalic, head/scalp atraumatic and moist mucous membranes Eyes PERRL and EOMs intact bilaterally Neck no lymphadenopathy, supple and no JVD Resp normal respiratory effort and clear to auscultation bilaterally Cardio regular rate, regular rhythm and no murmurs GI GI Narrative: Rectal examination reveals bright red blood on the glove. No palpable or visualized hemorrhoids. No obvious anal fissure Palpation: soft and tender LLQ and suprapubic Back/Spine no CVA tenderness and normal ROM Extremity normal to inspection General Extremety ED: Negative for edema General Extremity: Negative for edema Neuro oriented x3 and CN's II-XII intact bilaterally Sensorium / Orientation: alert Motor Exam: strength 5/5 throughout Psych mental status grossly normal Mood & Affect: Negative for depressed or tearful Skin no rashes or lesions noted and no wounds MDM MDM MDM Narrative Medical decision making narrative: Patient has had no further bleeding here. His hemoglobin is stable at 13.9. CT does not demonstrate any colitis or diverticulosis. Patient will be discharged home instructions to follow-up for colonoscopy return if worsening I will touch base with his family doctor. Lab Data Attestation: I reviewed the patient's lab results. Labs: Laboratory Results - last 24 hr 11/16/20 11/16/20 11:07 11:07 WBC 6.5 RBC 4.47 L Hgb 13.9 Hct 39.1 L MCV 87.5 MCH 31.1 MCHC 35.5 RDW Std Deviation 39.9 RDW Coeff of Sima 12.6 Plt Count 244 MPV 10.0 Immature Gran % (Auto) 0.600 Neut % (Auto) 63.6 Lymph % (Auto) 26.6 [place] % (Auto) 6.2 Eos % (Auto) 2.5 Baso % (Auto) 0.5 Absolute Neuts (auto) 4.1 Absolute Lymphs (auto) 1.73 Nucleated RBC % 0 Sodium 141 Potassium 3.8 Chloride 107 Carbon Dioxide 31.0 Anion Gap 3 L BUN 22 H Creatinine 0.98 Estim Creat Clear Calc 86.28 Est GFR (MDRD) Af Amer 104 Est GFR (MDRD) Non-Af 86 BUN/Creatinine Ratio 22.6 H Glucose 114 H Calcium 8.8 Total Bilirubin 1.00 AST 17 ALT 27 Alkaline Phosphatase 74 Total Protein 6.6 Albumin 3.5 Globulin 3.1 Albumin/Globulin Ratio 1.1 Lipase 81 Radiography Diagnostic Testing: Radiology Impression Abdomen/Pelvis CT 11/16/20 10:52 IMPRESSION: Nonobstructive calculus in the lower pole calyx of the left kidney. Mild degree of left hydronephrosis and dilated renal pelvis to the level of the ureteral pelvic junction. Diffuse fatty infiltration of the liver. Electronically Signed: Lane Inman MD at 13:17 EDT , Service support , Discharge Plan Triage Chief Complaint: GI Bleed ED Provider: Ashish Monreal Dx/Rx/DC Orders Clinical Impression: Acute lower GI bleeding Instructions: ED Lower GI Bleeding (Stable) Prescriptions: No Action lisinopril 40 MG tablet 40 mg PO DAILY RF: 0 hydrochlorothiazide 50 MG tablet 1 tab PO DAILY RF: 0 potassium chloride 10 mEq tablet extended release 10 meq PO DAILY RF: 0 omeprazole 40 mg capsule,delayed release(DR/EC) 40 mg PO DAILY RF: 0 Primary Care Provider: Steven Sandy Referrals: Steven Sandy MD [Primary Care Provider] - As soon as possible (You will need to have a follow-up colonoscopy) Disposition Disposition: Home, Self Care
[2020-11-16] MEDS: 0.9% Normal Saline 1,000 ML 1000 ML IV (11:10)
[2020-11-16 11:20] LABS: Absolute Lymphocyte Count 1.73 X10^3/uL (0.83-4.51); Absolute Neutrophil Count 4.1 X10^3/uL (2.0-7.7); Basophil# 0.03 X10^3/uL; Basophil% 0.5 % (0-1); Eosinophil# 0.16 X10^3/uL; Eosinophils% 2.5 % (0-5); Hematocrit 39.1 % (40-54); Hemoglobin 13.9 g/dL (13.0-16.5); Lymphocyte # 1.73 X10^3/ul (0.83-4.51); Lymphocyte % 26.6 % (19-41); Mean Corp Hgb Conc 35.5 g/dL (32-36); Mean Corpuscular Hgb 31.1 pg (27.0-32.0); Mean Corpuscular Volume 87.5 fL (80-94); Monocyte% 6.2 % (0-10); NRBC Flagged by Analyzer 0 % (0-5); Neutrophil # 4.14 X10^3/uL (2.7-7.7); Neutrophil % 63.6 % (47-70); Platelet Count 244 K/mm3 (150-450); RBC Distribution Width CV 12.6 % (11.6-14.6); RBC Distribution Width SD 39.9 fl (35.1-43.9); Red Blood Count 4.47 M/mm3 (4.6-6.2); White Blood Count 6.5 K/mm3 (4.4-11.0)
[2020-11-16 11:33] LABS: ALB/GLOB Ratio 1.1 RATIO (0.9-2.4); AST(SGOT) 17 U/L (15-37); Alanine Aminotransfer ALT/SGPT 27 U/L (16-61); Albumin, Serum 3.5 g/dL (3.2-5.0); Alkaline Phosphatase 74 U/L (45-117); Anion Gap 3 (5-15); BUN 22 mg/dL (7-18); BUN/Creat Ratio 22.6 RATIO (10-20); Calcium,Total 8.8 mg/dL (8.5-10.1); Chloride 107 mmol/L (98-107); Creatinine, Serum 0.98 mg/dL (0.70-1.30); EST Glomerular Filtration Rate 86 mL/min (>60); Est Glom Filt Rate - Afr Amer 104 mL/min (>60); Estimated Creatinine Clearance 86.28 ml/min; Globulin 3.1 g/dL (2.2-4.2); Glucose 114 mg/dL (74-106); Lipase 81 U/L (73-393); Potassium 3.8 mmol/L (3.5-5.1); Protein, Total 6.6 g/dL (6.4-8.2); Sodium Level 141 mmol/L (136-145)
[2020-11-16 13:02] VITALS: BP 129/81; PULSE 64; RESP 15; O2SAT 96
[2020-11-16 14:20] VITALS: BP 133/69; PULSE 75; RESP 16; O2SAT 98
== END 2020-11-16 14:23 | disposition home or self-care (01) ==
PROVIDERS: Emergency Provider Emergency Medicine; PCP Family Medicine
DX: K92.2 Gastrointestinal hemorrhage, unspecified (principal); I10 Essential (primary) hypertension; K21.9 Gastro-esophageal reflux disease without esophagitis; Z79.899 Other long term (current) drug therapy; Z87.891 Personal history of nicotine dependence
CPT/HCPCS: 74177; 80053; 83690; 85025; 96360; 96361; 99283; J7030; Q9967

== ENCOUNTER 2020-11-17 18:50 | Emergency (ER) | payer BC, SELFPAY ==
[2020-11-16 10:13] VITALS: BMI 38.9
[2020-11-17 18:51] VITALS: BP 142/91; PULSE 82; RESP 16; TEMP 36.1; O2SAT 97; BMI 40.4
[2020-11-17 19:29] LABS: Absolute Lymphocyte Count 1.98 X10^3/uL (0.83-4.51); Absolute Neutrophil Count 3.5 X10^3/uL (2.0-7.7); Basophil# 0.03 X10^3/uL; Basophil% 0.5 % (0-1); Eosinophil# 0.18 X10^3/uL; Eosinophils% 2.9 % (0-5); Hematocrit 39.5 % (40-54); Hemoglobin 13.8 g/dL (13.0-16.5); Lymphocyte # 1.98 X10^3/ul (0.83-4.51); Lymphocyte % 31.9 % (19-41); Mean Corp Hgb Conc 34.9 g/dL (32-36); Mean Corpuscular Hgb 30.7 pg (27.0-32.0); Monocyte# 0.52 X10^3/uL; Monocyte% 8.4 % (0-10); NRBC Flagged by Analyzer 0 % (0-5); Neutrophil # 3.46 X10^3/uL (2.7-7.7); Neutrophil % 55.7 % (47-70); Platelet Count 250 K/mm3 (150-450); RBC Distribution Width CV 12.7 % (11.6-14.6); RBC Distribution Width SD 40.6 fl (35.1-43.9); Red Blood Count 4.49 M/mm3 (4.6-6.2); White Blood Count 6.2 K/mm3 (4.4-11.0)
[2020-11-17 19:37] LABS: Bacteria 0 SEEN /hpf (None Seen); Mucous, Urine 0 SEEN /hpf (<or=2+); Squamous Epithelial Cells - UA 0 SEEN /hpf (0-5)
[2020-11-17 19:39] LABS: Color, Urine Yellow (Yellow); Glucose, Dipstick Normal (Normal); Ketone-Dipstick 5 mg/dl (Negative); Leukocyte Esterase-Dipstick 25 /ul (Negative); Nitrite-Dipstick Negative (Negative); Occult Blood-Urine Negative /ul (Negative); Protein-Dipstick 15 mg/dl (Negative); Specific Gravity, Urine 1.025 (1.002-1.030); Urine Bilirubin Dipstick Negative (Negative); Urine Clarity Clear (Clear); Urine Urobilinogen Normal (Normal)
[2020-11-17 19:45] LABS: Anion Gap 4 (5-15); BUN 21 mg/dL (7-18); BUN/Creat Ratio 18.1 RATIO (10-20); Calcium,Total 8.7 mg/dL (8.5-10.1); Chloride 108 mmol/L (98-107); Creatinine, Serum 1.16 mg/dL (0.70-1.30); EST Glomerular Filtration Rate 70 mL/min (>60); Est Glom Filt Rate - Afr Amer 85 mL/min (>60); Estimated Creatinine Clearance 72.89 ml/min; Glucose 157 mg/dL (74-106); Potassium 3.4 mmol/L (3.5-5.1); Sodium Level 143 mmol/L (136-145)
--- NOTE | 2020-11-17 20:01 | EX.ED.DYSGE1 ---
HPI History of Present Illness Chief Complaint: GI Bleed Narrative Narrative: Patient is presenting with bright red blood per rectum. He was seen yesterday had an unremarkable work-up. He started bleeding again today although it had subsided again. He has no abdominal pain fever chills cough or congestion he does not feel lightheaded. [facility] Medical History (Updated 11/17/20 @ 20:[address] Binu Davis MD) Dyslipidemia Elevated fasting blood sugar GERD (gastroesophageal reflux disease) Hypertension Hypospadias Kidney stone Reconstruction of L face Sleep apnea Home Medications lisinopril 40 mg PO DAILY 01/23/14 [History Last Taken 09/03/19 08:00] hydrochlorothiazide 1 tab PO DAILY 05/20/18 [History Last Taken 09/03/19 08:00] omeprazole 40 mg PO DAILY 11/16/20 [History Last Taken Unknown] potassium chloride 10 meq PO DAILY 11/16/20 [History Last Taken Unknown] docusate sodium [Colace] 100 mg PO BID #20 cap 11/17/20 [Rx Last Taken Unknown] Allergy/AdvReac Type Severity Reaction Status Date / Time No Known Allergies Allergy Verified 11/17/20 18:51 Family History (Reviewed 08/21/18 @ 15:00 by Shira Amos PRODUCTION MAINTENANCE TECHNICIAN, PRODUCTION MAINTENANCE TECHNICIAN-C) Brother Testicular cancer Surgical History H/O lithotripsy History of arthroscopy of both knees History of shoulder surgery Social History (Updated 11/16/20 @ 10:[address] Ashish Monreal, DO) Smoking Status: Former smoker substance use type: does not use ROS ROS ED ROS Narrative Past medical history: Reviewed, includes hypercholesterolemia, sleep apnea, history of kidney stones. Medications: Reviewed Social history: Noncontributory Review of systems: All systems negative except as indicated General: No fever Eyes: No visual changes ENT: No upper airway congestion, normal voice Neck: No neck pain Cardiovascular: No chest pain Respiratory: No shortness of breath or cough Gastrointestinal: No abdominal pain. There is rectal bleeding as in HPI Genitourinary: No dysuria Musculoskeletal: Denies myalgias no difficulty with ambulation Skin: No rash Neurological: No memory loss, confusion or any focal weakness Psych: No recent behavioral changes Hematologic: No easy bleeding or easy bruising EXAM Physical Exam Narrative Exam Narrative: Physical exam General: Well nourished, Well developed, No Acute Distress Head: Normocephalic, Atraumatic Eyes: Conjunctiva not pale ENT: Moist mucous membranes Neck: Supple, Nontender, No lymphadenopathy Cardiovascular: Regular rate, Regular rhythm Respiratory: No distress, CTA bilaterally Abdomen: Soft, Nontender, Nondistended Rectal: There is bright red blood per rectum no external hemorrhoids. Back: Nontender, Normal Inspection. Negative for: CVA tenderness Extremities: Nontender, No edema Skin: Normal color, No rash Neurological: Alert, Normal Strength, Normal Sensation Psychological: Normal affect Const Vital Signs: 11/17/20 18:51 Temperature 96.9 F L Temperature Source Temporal Pulse Rate 82 Respiratory Rate 16 Blood Pressure 142/91 H Blood Pressure Mean 108 Pulse Ox 97 Oxygen Delivery Method Room Air MDM MDM MDM Narrative Medical decision making narrative: I did bedside and anoscopy. There is a large internal hemorrhoid which is actively bleeding, I was not initially but after the turning of the anoscope to get a better view it started briskly bleeding. Lab Data Labs: Laboratory Results - last 24 hr 11/17/20 11/17/20 11/17/20 19:21 19:21 19:32 WBC 6.2 RBC 4.49 L Hgb 13.8 Hct 39.5 L MCV 88.0 MCH 30.7 MCHC 34.9 RDW Std Deviation 40.6 RDW Coeff of Sima 12.7 Plt Count 250 MPV 10.0 Immature Gran % (Auto) 0.600 Neut % (Auto) 55.7 Lymph % (Auto) 31.9 [place] % (Auto) 8.4 Eos % (Auto) 2.9 Baso % (Auto) 0.5 Absolute Neuts (auto) 3.5 Absolute Lymphs (auto) 1.98 Nucleated RBC % 0 Sodium 143 Potassium 3.4 L Chloride 108 H Carbon Dioxide 31.0 Anion Gap 4 L BUN 21 H Creatinine 1.16 Estim Creat Clear Calc 72.89 Est GFR (MDRD) Af Amer 85 Est GFR (MDRD) Non-Af 70 BUN/Creatinine Ratio 18.1 Glucose 157 H Calcium 8.7 Urine Color Yellow Urine Clarity Clear Urine pH 5.0 Ur Specific [place] 1.025 Urine Protein 15 H Urine Glucose (UA) Normal Urine Ketones 5 H Urine Occult Blood Negative Urine Nitrite Negative Urine Bilirubin Negative Urine Urobilinogen Normal Ur Leukocyte Esterase 25 H Discharge Plan Triage Chief Complaint: GI Bleed ED Provider: Binu Davis Dx/Rx/DC Orders Clinical Impression: Bleeding internal hemorrhoids Instructions: ED Hemorrhoids Prescriptions: New docusate sodium [Colace] 100 mg capsule 100 mg PO BID Qty: 20 RF: 0 No Action lisinopril 40 MG tablet 40 mg PO DAILY RF: 0 hydrochlorothiazide 50 MG tablet 1 tab PO DAILY RF: 0 potassium chloride 10 mEq tablet extended release 10 meq PO DAILY RF: 0 omeprazole 40 mg capsule,delayed release(DR/EC) 40 mg PO DAILY RF: 0 Primary Care Provider: Steven Sandy Referrals: Steven Sandy MD [Primary Care Provider] - Hieu Mina MD [NON-STAFF] - 3-5 Days Disposition Disposition: Home, Self Care
[2020-11-17 20:08] LABS: Red Blood Cells-Urine 0-5 SEEN /hpf (0-5); White Blood Cells 0-5 SEEN /hpf (0-5)
== END 2020-11-17 20:26 | disposition home or self-care (01) ==
PROVIDERS: Emergency Provider Emergency Medicine; PCP Family Medicine
DX: K64.8 Other hemorrhoids (principal); Z87.891 Personal history of nicotine dependence; Z87.442 Personal history of urinary calculi
CPT/HCPCS: 80048; 81001; 85025; 99283; A4216

== ENCOUNTER 2021-01-07 10:41 | Emergency (ER) | payer BC, SELFPAY ==
[2021-01-07 10:42] VITALS: BP 162/109; PULSE 89; RESP 20; TEMP 36.1; O2SAT 94; BMI 40.3
[2021-01-07 10:44] VITALS: BP 162/109; PULSE 89; RESP 20; TEMP 36.1; O2SAT 94
--- NOTE | 2021-01-07 11:06 | EX.ED.DYSGE1 ---
HPI History of Present Illness Chief Complaint: General Illness Informant: patient Onset/Context/Timing Onset: Weeks Context: Gradual Onset Timing: Continuous Current Severity: Mild Maximum Severity: Mild Narrative Narrative: 50-year-old male history of kidney stones and hypertension. States his symptoms started almost 2 weeks ago on Sunday. The following Sunday which is about 10 days ago he was diagnosed with Covid at the [facility]. States his symptoms have not gone away. He has had intermittent nausea and vomiting. He is diaphoretic when he stands. He denies feeling short of breath he does state he has a significant cough. He had a fever as high as 101 that is since resolved. States everyone in his family at home has it even his that was vaccinated. Prior similar symptoms: No Recent Illness/Hospitalization: No [facility] Medical History (Updated 01/07/21 @ 13:[address] Akash Amin MD) Dyslipidemia Elevated fasting blood sugar GERD (gastroesophageal reflux disease) Hypertension Hypospadias Kidney stone Reconstruction of L face Sleep apnea Home Medications lisinopril 40 mg PO DAILY 01/23/14 [History Last Taken 09/03/19 08:00] hydrochlorothiazide 1 tab PO DAILY 05/20/18 [History Last Taken 09/03/19 08:00] omeprazole 40 mg PO DAILY 11/16/20 [History Last Taken Unknown] potassium chloride 10 meq PO DAILY 11/16/20 [History Last Taken Unknown] dexamethasone [Decadron] 6 mg PO DAILY #5 tab 01/07/21 [Rx Last Taken Unknown] Allergy/AdvReac Type Severity Reaction Status Date / Time No Known Allergies Allergy Verified 01/07/21 10:44 Family History Brother Testicular cancer Surgical History H/O lithotripsy History of arthroscopy of both knees History of shoulder surgery Social History Smoking Status: Former smoker substance use type: does not use ROS ROS ED ROS Narrative Cough, fever, nausea vomiting. Review of Systems ROS Unobtainable: Denies due to encephalopathy Constitutional Constitutional ED: Reports fever(s) and sweats Eyes Eyes: Denies change in vision ENT ENT ED: Denies ear pain or sore throat Cardiovascular Cardiovascular: Denies chest pain Respiratory/Chest Respiratory/Chest: Reports cough; Denies dyspnea Gastrointestinal Gastrointestinal: Reports nausea and vomiting; Denies abdominal pain or diarrhea Genitourinary Genitourinary ED: Denies dysuria Musculoskeletal Musculoskeletal: Denies myalgias Integumentary Denies rash Neurologic Neurologic: Denies headache(s) Psychiatric Psychiatric: Denies depression Endocrine Endocrinology: Denies polyuria Allergic/Immunologic Allergic/Immunologic ED: Denies urticaria EXAM Physical Exam Narrative Exam Narrative: 50-year-old male no acute distress. Vital signs stable afebrile. Pulse ox 94% on room air no hypoxia. Afebrile. Pulse 90. He does not look septic or toxic. He does not look dehydrated. HEENT exam unremarkable. Moist with memories. Neck nontender no lymphadenopathy. Lungs clear to auscultation bilaterally. Heart regular rhythm rate about 90 no murmur. Abdomen soft nontender. Moving all 4 extremities. Calves nontender no edema. Neurologically is awake alert no focal motor deficits. Back nontender. Const Vital Signs: 01/07/21 10:42 01/07/21 10:44 01/07/21 11:20 Temperature 96.9 F L 96.9 F L Temperature Source Temporal Temporal Pulse Rate 89 89 Respiratory Rate 20 H 20 H Respiratory Effort Normal Non-Labored Respiratory Pattern Normal Blood Pressure 162/109 H 162/109 H Blood Pressure Mean 126 126 Pulse Ox 94 94 Oxygen Delivery Method Room Air Room Air Positive well nourished, well developed and obese; Negative for cachectic, contractures or unkempt General Appearance ED: well developed and NAD; Negative for unkempt, cachectic or contractures Nutritional Appearance: obese; Negative for cachectic HEENT Reports moist mucous membranes Negative for trauma or tenderness Eyes PERRL and EOMs intact bilaterally Neck no lymphadenopathy, supple and no JVD General: Negative for tenderness Chest Wall inspection of chest normal and palpation of chest normal Resp normal respiratory effort and clear to auscultation bilaterally Effort and Inspection: Negative for pain with movement Auscultation: Negative for rales, rhonchi or wheezes Cardio regular rate, regular rhythm, S1 normal heart sound, S2 normal heart sound and no murmurs GI normal to inspection, nondistended, normoactive bowel sounds, non-tender, non-distended and no masses Inspection: Negative for abdominal distention Auscultation: normoactive bowel sounds Palpation: soft; Negative for tender, guarding or rebound tenderness present Back/Spine no CVA tenderness General Back: Negative for CVA tenderness Extremity normal to inspection General Extremety ED: Negative for edema or tenderness General Extremity: Negative for edema Neuro oriented x3 and CN's II-XII intact bilaterally Sensorium / Orientation: alert; Negative for orientation impaired, lethargic or stuporous Motor Exam: strength 5/5 throughout Psych mental status grossly normal Appearance: Negative for unkempt Skin no rashes or lesions noted and no wounds MDM MDM MDM Narrative Medical decision making narrative: 50 yo male with Covid. Screening labs and chest x-ray being obtained. Currently meets no criteria for admission. Repeat exam patient is doing well at 1:42 PM. He will be started on Decadron for the next 5 days and outpatient follow-up. Patient's had symptoms for more than 10 days and is really not a candidate for monoclonal antibody therapy. Lab Data Attestation: I reviewed the patient's lab results. Lab results narrative: CBC White count of 5. Hemoglobin 13.4. Electrolytes unremarkable gap 3 normal creatinine. Glucose 166. Labs: Laboratory Results - last 24 hr 01/07/21 01/07/21 11:18 11:18 WBC 5.0 RBC 4.36 L Hgb 13.4 Hct 38.7 L MCV 88.8 MCH 30.7 MCHC 34.6 RDW Std Deviation 40.3 RDW Coeff of Sima 12.5 Plt Count 228 MPV 10.4 Immature Gran % (Auto) 0.200 Neut % (Auto) 70.7 H Lymph % (Auto) 20.7 Clark % (Auto) 6.2 Eos % (Auto) 2.0 Baso % (Auto) 0.2 Absolute Neuts (auto) 3.5 Absolute Lymphs (auto) 1.03 Nucleated RBC % 0 Sodium 142 Potassium 3.3 L Chloride 108 H Carbon Dioxide 31.0 Anion Gap 3 L BUN 14 Creatinine 0.78 Estim Creat Clear Calc 108.40 Est GFR (MDRD) Af Amer 134 Est GFR (MDRD) Non-Af 111 BUN/Creatinine Ratio 17.9 Glucose 166 H Calcium 8.7 Radiography Chest X-Ray - ED: 1 View, Read by ED Physician, Heart, Lungs, Mediastinum and Bony Structures Diagnostic Testing: Radiology Impression Chest X-Ray 08/20/21 11:22 IMPRESSION: Interstitial and airspace opacifications at both lung clark without effusions. Parenchymal opacification most suggestive of Covid pneumonia Electronically Signed: Erwin Rodriguez MD at 11:43 EDT , Service support , Discharge Plan Triage Chief Complaint: General Illness ED Provider: Akash Amin Dx/Rx/DC Orders Clinical Impression: COVID Instructions: Symptoms of COVID-19 Infection Prescriptions: New dexamethasone [Decadron] 6 mg tablet 6 mg PO DAILY Qty: 5 RF: 0 No Action lisinopril 40 MG tablet 40 mg PO DAILY RF: 0 hydrochlorothiazide 50 MG tablet 1 tab PO DAILY RF: 0 potassium chloride 10 mEq tablet extended release 10 meq PO DAILY RF: 0 omeprazole 40 mg capsule,delayed release(DR/EC) 40 mg PO DAILY RF: 0 Primary Care Provider: Steven Sandy Referrals: Steven Sandy MD [Primary Care Provider] - 1 Week if not improving Activity Restrictions/Additional Instructions: Plenty of fluids and rest. Tylenol Motrin for fever and body aches. Decadron daily for the next 5 days. Follow-up with your doctor feeling a lot worse or return to the emergency department. Disposition Disposition: Home, Self Care
[2021-01-07] MEDS: 0.9% Normal Saline 1,000 ML 1000 ML IV (11:20)
--- NOTE | 2021-01-07 11:22 | RAD_ITS ---
STUDY: X-RAY CHEST REASON FOR EXAM: Male, 50 years old. Fever and cough, Covid + TECHNIQUE: Single AP portable view of the chest. COMPARISON: 09/03/2019 FINDINGS: Lungs are expanded with interstitial and airspace opacifications in both lung clark without effusions. Pattern of opacification most suggestive of Covid pneumonia. Normal size heart. Normal mediastinum and joana. Normal visualized pulmonary arteries. Normal visualized aortic arch and descending thoracic aorta. There are diffuse degenerative changes of the visualized thoracic spine. Replaced right glenohumeral joint free of complication There is no demonstrated abnormality of the visualized soft tissue structures of the upper abdomen. RAD/Chest 1 View (Portable) IMPRESSION: Interstitial and airspace opacifications at both lung clark without effusions. Parenchymal opacification most suggestive of Covid pneumonia Electronically Signed: Erwin Rodriguez MD at 11:43 EDT , Service support ,
[2021-01-07 11:28] LABS: Absolute Lymphocyte Count 1.03 X10^3/uL (0.83-4.51); Absolute Neutrophil Count 3.5 X10^3/uL (2.0-7.7); Basophil# 0.01 X10^3/uL; Basophil% 0.2 % (0-1); Hematocrit 38.7 % (40-54); Hemoglobin 13.4 g/dL (13.0-16.5); Lymphocyte # 1.03 X10^3/ul (0.83-4.51); Lymphocyte % 20.7 % (19-41); Mean Corp Hgb Conc 34.6 g/dL (32-36); Mean Corpuscular Hgb 30.7 pg (27.0-32.0); Mean Corpuscular Volume 88.8 fL (80-94); Mean Platelet Vol. 10.4 fl (6.2-12.0); Monocyte# 0.31 X10^3/uL; Monocyte% 6.2 % (0-10); NRBC Flagged by Analyzer 0 % (0-5); Neutrophil # 3.52 X10^3/uL (2.7-7.7); Neutrophil % 70.7 % (47-70); POSITIVE MORPHOLOGY YES; Platelet Count 228 K/mm3 (150-450); RBC Distribution Width CV 12.5 % (11.6-14.6); RBC Distribution Width SD 40.3 fl (35.1-43.9); Red Blood Count 4.36 M/mm3 (4.6-6.2)
[2021-01-07 11:36] LABS: Differential Indicated SCAN CRITERIA MET
[2021-01-07 11:43] LABS: Anion Gap 3 (5-15); BUN 14 mg/dL (7-18); BUN/Creat Ratio 17.9 RATIO (10-20); Calcium,Total 8.7 mg/dL (8.5-10.1); Chloride 108 mmol/L (98-107); Creatinine, Serum 0.78 mg/dL (0.70-1.30); EST Glomerular Filtration Rate 111 mL/min (>60); Est Glom Filt Rate - Afr Amer 134 mL/min (>60); Glucose 166 mg/dL (74-106); Potassium 3.3 mmol/L (3.5-5.1); Sodium Level 142 mmol/L (136-145)
[2021-01-07 14:03] VITALS: BP 154/104; PULSE 71; PULSE 75; RESP 16; RESP 18; O2SAT 92
[2021-01-07] MEDS: dexAMETHasone 4 MG Tablet 6 MG PO (14:06)
== END 2021-01-07 14:13 | disposition home or self-care (01) ==
PROVIDERS: Emergency Provider Emergency Medicine; PCP Family Medicine
DX: U07.1 COVID-19 (principal); I10 Essential (primary) hypertension; K21.9 Gastro-esophageal reflux disease without esophagitis; E78.5 Hyperlipidemia, unspecified; E66.9 Obesity, unspecified; Z68.41 Body mass index [BMI] 40.0-44.9, adult; Z79.899 Other long term (current) drug therapy; Z87.891 Personal history of nicotine dependence
CPT/HCPCS: 71045; 80048; 85025; 96360; 96361; 99284; J7030; A4216

== ENCOUNTER 2021-11-06 12:43 | Emergency (ER) | payer BC, SELFPAY ==
[2021-11-06 12:47] VITALS: BP 126/78; PULSE 95; RESP 31; TEMP 35.8; BMI 40.8
--- NOTE | 2021-11-06 13:02 | RAD_ITS ---
STUDY: X-RAY CHEST REASON FOR EXAM: Male, 51 years old. Dyspnea TECHNIQUE: Single frontal view of the chest. COMPARISON: 01/07/2021 FINDINGS: There is no new focal consolidation. Normal size heart. Normal mediastinum and joana. Normal visualized pulmonary arteries. Normal visualized aortic arch and descending thoracic aorta. Normal visualized thoracic spine. There is a left shoulder arthroplasty in place. There is no demonstrated abnormality of the visualized soft tissue structures of the upper abdomen. RAD/Chest 1 View (Portable) IMPRESSION: No acute cardiopulmonary process. Electronically Signed: Radha Arana MD at 14:40 EDT ,
--- NOTE | 2021-11-06 13:02 | CT_ITS ---
STUDY: CT BRAIN WITHOUT CONTRAST REASON FOR EXAM: Male, 51 years old. Dizziness RADIATION DOSAGE (If Supplied By Facility): CTDIvol = ( 44.99 ) mGy, DLP = ( 812.98 ) mGycm TECHNIQUE: Transaxial CT imaging of the brain was performed without administration of intravenous contrast material. Individualized dose optimization techniques were used for this CT. COMPARISON 09/15/2012 FINDINGS: Normal soft tissue structures. There are stable postsurgical changes of the left maxillary sinus and left zygoma. There is mild opacification of the ethmoid, sphenoid and visualized left maxillary sinuses. Normal size ventricles and extra-axial spaces for the patient''s age. Normal white matter tracts of the cerebral hemispheres. Normal basal ganglia and thalami. Normal brainstem. Normal cerebellum. There is no intracranial hemorrhage. There are no findings of an acute ischemic infarction. CT/Brain/Head without Contrast IMPRESSION: No acute intracranial process. Partial opacification of the ethmoid, sphenoid and visualized left maxillary sinuses consistent with a history of sinusitis. Electronically Signed: Radha Arana MD at 14:08 EDT ,
--- NOTE | 2021-11-06 13:02 | EKG12_ITS ---
Test Reason : DIZZINESS Blood Pressure : / mmHG Vent. Rate : 068 BPM Atrial Rate : 068 BPM P-R Int : 148 ms QRS Dur : 108 ms QT Int : 458 ms P-R-T Axes : 000 -14 006 degrees QTc Int : 487 ms Normal sinus rhythm Prolonged QT Abnormal ECG Confirmed by MIGEL KABA MD ([id number]), restaurant expeditor MARITO GARCIA ([id number]) on 11/07/2021 10:16:37 AM Referred By: PATIENCE Confirmed By:MIGEL KABA MD
--- NOTE | 2021-11-06 13:04 | EX.ED.DYSGE1 ---
HPI History of Present Illness Chief Complaint: Dizziness Narrative Narrative: 51-year-old male presenting with dizziness which he describes as vertiginous. This started last night. He states has been unable to get up because every time he opens his eyes and stands he becomes very dizzy and shaky. His states he looks like he is short of breath, but he states he is just trying to get his bearings because he is so dizzy. He states he has not had any chest pain. He states that prior to the onset of the episode of vertigo he was otherwise well. He was eating and drinking normally. He is making normal urine and stool. He has no history of trauma. He states he does not have a headache. No fevers or chills. Patient does state that he has a history of vertigo and has never been this bad, and he did take meclizine 12 hours ago which had no effect. He does not know what dose he had. PFSH PFSH Medical History Dyslipidemia Elevated fasting blood sugar GERD (gastroesophageal reflux disease) Hx of vertigo Hypertension Hypospadias Kidney stone Reconstruction of L face Sleep apnea Home Medications amoxicillin 875 mg-potassium clavulanate 125 mg tablet 1 tab PO BID #20 tabs 11/06/21 [Rx Last Taken Unknown] diazepam 2 mg tablet (Valium) 2 mg PO TID PRN dizziness or vertigo 3 days #12 tabs 11/06/21 [Rx Last Taken Unknown] hydrochlorothiazide 50 mg tablet 50 mg PO DAILY 11/06/21 [History Last Taken Unknown] lisinopril 40 mg tablet 40 mg PO DAILY 11/06/21 [History Last Taken Unknown] Allergy/AdvReac Type Severity Reaction Status Date / Time No Known Allergies Allergy Verified 11/06/21 12:44 Family History Brother Testicular cancer Surgical History H/O lithotripsy History of arthroscopy of both knees History of shoulder surgery Social History Smoking Status: Former smoker substance use type: does not use ROS ROS ED Constitutional Constitutional ED: Denies chills or fever(s) Eyes Eyes: Reports other Details: Vertiginous dizziness with standing ENT ENT ED: Denies rhinorrhea or sore throat Cardiovascular Cardiovascular: Denies palpitations or racing heartbeat Respiratory/Chest Respiratory/Chest: Denies cough Gastrointestinal Gastrointestinal: Denies abdominal pain or constipation Genitourinary Genitourinary ED: Denies dysuria or hematuria Musculoskeletal Musculoskeletal: Denies arthralgias, back pain, myalgias or neck pain Integumentary Denies abscess Neurologic Neurologic: Denies headache(s) Psychiatric Psychiatric: Denies anxiety or depression EXAM Physical Exam Const Vital Signs: 11/06/21 12:47 11/06/21 13:18 11/06/21 15:01 Temperature 96.4 F L Temperature Source Temporal Pulse Rate 95 70 Respiratory Rate 31 H 15 Respiratory Effort Normal Respiratory Pattern Normal Blood Pressure 126/78 H 128/91 H Blood Pressure Mean 94 103 Pulse Ox 99 Oxygen Delivery Method Room Air Room Air 11/06/21 15:55 Temperature Temperature Source Pulse Rate 77 Respiratory Rate 12 Respiratory Effort Respiratory Pattern Blood Pressure 129/91 H Blood Pressure Mean 103 Pulse Ox 98 Oxygen Delivery Method Room Air Positive well nourished General Appearance ED: NAD; Negative for pallor HEENT Reports moist mucous membranes Eyes PERRL and EOMs intact bilaterally Resp normal respiratory effort and clear to auscultation bilaterally Cardio regular rate and regular rhythm GI normal to inspection, nondistended, normoactive bowel sounds Neuro oriented x3, CN's II-XII intact bilaterally and no sensory deficits noted Sensorium / Orientation: alert Psych mental status grossly normal Skin no rashes or lesions noted, no wounds and skin turgor normal General Skin Exam: Negative for elasticity normal or pallor MDM MDM MDM Narrative Medical decision making narrative: Patient presenting with vertigo. He states that the typical vertigo he has response to meclizine however this has not. He has not taken any today however. He was given Phenergan and diazepam 2 mg p.o. I did obtain blood work and his CBC is normal. CMP shows normal renal function. His potassium slight low at 3.4. Total bilirubin elevated at 1.4 which is new from last year but he does not have any abdominal pain. EKG was obtained and this shows a normal sinus rhythm with a ventricular rate of 68 bpm on my interpretation. MO interval 148 ms QRS duration 108 ms[address] QTc [address] brain was read as partial opacification of the ethmoid, sphenoid and visualized left maxillary sinuses and the patient does state that he has chronic mild congestion that he takes Sudafed for. He has not had any purulent drainage, fevers. He did state that he recently was treated for sinusitis. Nursing attempted to get him up but he still felt wobbly on his feet. He states that the vertiginous dizziness did improve however. Patient later was able to get up and although he felt unsteady on his feet his vertigo was much better. I suspect the value might have something to do with his unsteadiness. I did offer to admit the patient to because he still has the dizziness and perhaps even get an MRI to make sure there is nothing acute however he states he does not want to be admitted to the hospital. He wants to be treated for sinusitis and be giving something to help with his vertigo. At this point I will give the patient Augmentin and some Valium as this seems to help his dizziness. He was given return precautions. Impression: 1. Vertigo 2. Sinusitis Lab Data Attestation: I reviewed the patient's lab results. Labs: Laboratory Results - last 24 hr 11/06/21 11/06/21 12:50 12:50 WBC 10.2 RBC 5.05 Hgb 15.8 Hct 43.9 MCV 86.9 MCH 31.3 MCHC 36.0 RDW Std Deviation 38.1 RDW Coeff of Sima 12.1 Plt Count 334 MPV 11.0 Immature Gran % (Auto) 0.300 Neut % (Auto) 63.1 Lymph % (Auto) 28.4 [place] % (Auto) 6.9 Eos % (Auto) 1.0 Baso % (Auto) 0.3 Absolute Neuts (auto) 6.5 Absolute Lymphs (auto) 2.91 Nucleated RBC % 0 Sodium 139 Potassium 3.4 L Chloride 106 Carbon Dioxide 21.0 Anion Gap 12 BUN 28 H Creatinine 1.06 Estim Creat Clear Calc 78.87 Est GFR (MDRD) Af Amer 94 Est GFR (MDRD) Non-Af 78 BUN/Creatinine Ratio 26.4 H Glucose 161 H Calcium 9.4 Total Bilirubin 1.40 H AST 22 ALT 31 Alkaline Phosphatase 74 Troponin I High Sens 5 Total Protein 7.1 Albumin 3.8 Globulin 3.3 Albumin/Globulin Ratio 1.2 Radiography Diagnostic Testing: Clinical Impression(s) from Imaging Studies Brain CT 11/06/21 13:02 IMPRESSION: No acute intracranial process. Partial opacification of the ethmoid, sphenoid and visualized left maxillary sinuses consistent with a history of sinusitis. Electronically Signed: Radha Arana MD at 14:08 EDT , Chest X-Ray 11/06/21 13:02 IMPRESSION: No acute cardiopulmonary process. Electronically Signed: Radha Arana MD at 14:40 EDT , Discharge Plan Triage Chief Complaint: Dizziness ED Provider: Samuel Vazquez Dx/Rx/DC Orders Instructions: ED Sinusitis (Antibiotic Treatment), ED Vertigo, Unspecified Prescriptions: New diazepam [Valium] 2 mg tablet 2 mg PO TID PRN (Reason: dizziness or vertigo) 3 Days Qty: 12 0RF amoxicillin-pot clavulanate 875-125 mg tablet 1 tab PO BID Qty: 20 0RF No Action hydrochlorothiazide 50 mg tablet 50 mg PO DAILY Label Comments: TAKE 1 TABLET BY MOUTH EVERY DAY lisinopril 40 mg tablet 40 mg PO DAILY Label Comments: Take 1 tablet by mouth once daily. Stand Alone Forms: ED Work / School Excuse Primary Care Provider: Steven Sandy Referrals: Steven Sandy MD [Primary Care Provider] - Disposition Disposition: Home, Self Care Discharge Date/Time: 11/06/21 16:04
[2021-11-06] MEDS: diazePAM 2 MG Tablet PO (13:10)
[2021-11-06] MEDS: proMETHazine 25 MG/ML Syringe 12.5 MG IM (13:10)
[2021-11-06] MEDS: 0.9% Normal Saline 1,000 ML 1000 ML IV (13:11)
[2021-11-06 13:30] LABS: Absolute Lymphocyte Count 2.91 X10^3/uL (0.83-4.51); Absolute Neutrophil Count 6.5 X10^3/uL (2.0-7.7); Basophil# 0.03 X10^3/uL; Basophil% 0.3 % (0-1); Hematocrit 43.9 % (40-54); Hemoglobin 15.8 g/dL (13.0-16.5); Lymphocyte # 2.91 X10^3/ul (0.83-4.51); Lymphocyte % 28.4 % (19-41); Mean Corpuscular Hgb 31.3 pg (27.0-32.0); Mean Corpuscular Volume 86.9 fL (80-94); Monocyte# 0.71 X10^3/uL; Monocyte% 6.9 % (0-10); NRBC Flagged by Analyzer 0 % (0-5); Neutrophil # 6.46 X10^3/uL (2.7-7.7); Neutrophil % 63.1 % (47-70); Platelet Count 334 K/mm3 (150-450); RBC Distribution Width CV 12.1 % (11.6-14.6); RBC Distribution Width SD 38.1 fl (35.1-43.9); Red Blood Count 5.05 M/mm3 (4.6-6.2); White Blood Count 10.2 K/mm3 (4.4-11.0)
[2021-11-06 13:38] LABS: ALB/GLOB Ratio 1.2 RATIO (0.9-2.4); AST(SGOT) 22 U/L (15-37); Alanine Aminotransfer ALT/SGPT 31 U/L (16-61); Albumin, Serum 3.8 g/dL (3.2-5.0); Alkaline Phosphatase 74 U/L (45-117); Anion Gap 12 (5-15); BUN 28 mg/dL (7-18); BUN/Creat Ratio 26.4 RATIO (10-20); Calcium,Total 9.4 mg/dL (8.5-10.1); Chloride 106 mmol/L (98-107); Creatinine, Serum 1.06 mg/dL (0.70-1.30); EST Glomerular Filtration Rate 78 mL/min (>60); Est Glom Filt Rate - Afr Amer 94 mL/min (>60); Estimated Creatinine Clearance 78.87 ml/min; Globulin 3.3 g/dL (2.2-4.2); Glucose 161 mg/dL (74-106); Potassium 3.4 mmol/L (3.5-5.1); Protein, Total 7.1 g/dL (6.4-8.2); Sodium Level 139 mmol/L (136-145); Troponin-I HS 5 pg/mL (3.0-78.0)
[2021-11-06 15:01] VITALS: BP 128/91; PULSE 70; RESP 15; O2SAT 99
[2021-11-06] MEDS: Amox/Clavulanate 875 MG Tablet PO (15:53)
[2021-11-06 15:55] VITALS: BP 129/91; PULSE 77; RESP 12; O2SAT 98
== END 2021-11-06 16:04 | disposition home or self-care (01) ==
PROVIDERS: Emergency Provider Student in an Organized Health Care Education/Training Program; PCP Family Medicine; Visit Provider Student in an Organized Health Care Education/Training Program
DX: R42 Dizziness and giddiness (principal); J32.9 Chronic sinusitis, unspecified; I10 Essential (primary) hypertension; Z79.899 Other long term (current) drug therapy; Z87.891 Personal history of nicotine dependence
CPT/HCPCS: 70450; 71045; 80053; 84484; 85025; 93005; 96360; 96361; 96372; 99285; J7030; A4216

== ENCOUNTER 2024-10-01 19:32 | Inpatient (IN) | payer OTHER, SELFPAY ==
[2024-10-01 19:32] VITALS: BP 116/81; PULSE 114; RESP 18; TEMP 36.6; O2SAT 91; BMI 38.6
[2024-10-01 19:40] VITALS: BP 117/86; PULSE 111; RESP 16; TEMP 36.6; O2SAT 92
[2024-10-01 20:40] VITALS: BP 114/86; PULSE 98; RESP 14; TEMP 36.6; O2SAT 93
[2024-10-01 21:00] VITALS: BP 129/81; PULSE 102; RESP 17; TEMP 36.8; O2SAT 93
--- NOTE | 2024-10-01 21:09 | EX.ED.DYSGE1 ---
HPI History of Present Illness Chief Complaint: General Illness [facility] Medical History Hx of vertigo Reconstruction of L face Sleep apnea Kidney stone Hypospadias Hypertension GERD (gastroesophageal reflux disease) Elevated fasting blood sugar Dyslipidemia Home Medications ?Medication ?Instructions ?Recorded ?Last Taken ?Type amoxicillin 875 mg-potassium 1 tab PO BID #20 tabs 11/06/21 Unknown Rx clavulanate 125 mg tablet diazepam 2 mg tablet (Valium) 2 mg PO TID PRN dizziness or 11/06/21 Unknown Rx vertigo 3 days #12 tabs hydrochlorothiazide 50 mg tablet 50 mg PO DAILY 11/06/21 Unknown History lisinopril 40 mg tablet 40 mg PO DAILY 11/06/21 Unknown History Allergy/AdvReac Type Severity Reaction Status Date / Time No Known Allergies Allergy Verified 10/01/24 19:38 Family History Brother Testicular cancer Surgical History History of shoulder surgery H/O lithotripsy History of arthroscopy of both knees Social History Smoking Status: Former smoker substance use type: does not use EXAM Physical Exam Const Vital Signs: 10/01/24 19:32 10/01/24 19:40 10/01/24 20:01 Temperature 97.9 F 98 F Temperature Source Temporal Oral Pulse Rate 114 H 111 H Respiratory Rate 18 16 Respiratory Effort Normal Non-Labored Respiratory Pattern Normal Blood Pressure 116/81 H 117/86 H Blood Pressure Mean 92 96 Pulse Ox 91 92 Oxygen Delivery Method Room Air Room Air Oxygen Flow Rate (L/min) 10/01/24 20:40 10/01/24 21:00 10/01/24 22:00 Temperature 98 F 98.2 F 98.2 F Temperature Source Oral Oral Oral Pulse Rate 98 102 H 103 H Respiratory Rate 14 17 18 Respiratory Effort Respiratory Pattern Blood Pressure 114/86 H 129/81 H 134/92 H Blood Pressure Mean 95 97 106 Pulse Ox 93 93 94 Oxygen Delivery Method Nasal Cannula Nasal Cannula Nasal Cannula Oxygen Flow Rate (L/min) 2 2 2 10/01/24 23:00 10/02/24 00:00 Temperature 97.7 F L 98.0 F Temperature Source Oral Oral Pulse Rate 102 H 100 Respiratory Rate 18 17 Respiratory Effort Respiratory Pattern Blood Pressure 153/78 H 125/89 H Blood Pressure Mean 103 101 Pulse Ox 98 95 Oxygen Delivery Method Nasal Cannula Room Air Oxygen Flow Rate (L/min) 2 MDM [facility] Narrative Medical decision making narrative: HISTORY OF PRESENT ILLNESS: Chief complaint: Weakness, fatigue 54-year-old male presents concern for multiple complaints including diffuse weakness, dry mouth, fatigue, poor appetite, feeling thirsty. Notes increased urination excessive thirst patient notes some difficulty with breathing. Denies chest pain. Denies leg swelling. No fever. REVIEW OF SYSTEMS: Pertinent positives: As per HPI Pertinent negatives: Vomiting, fever, chest pain PHYSICAL EXAM: Nursing triage notes reviewed, Vital signs reviewed Constitutional: please see [facility] HENT: MMM Eyes: Pupils equal round and reactive to light, Extraocular muscles intact Neck: No stridor, no JVD, full neck ROM Lungs: Clear to auscultation, No wheezing or rales. No increased work of breathing, no conversational dyspnea, no accessory muscle use, no nasal flaring. No respiratory distress noted Heart: Regular rate and rhythm, No murmurs, No rubs and No gallops, 2+ distal pulses (radial, femoral, posterior tibial) in all extremities Abdomen: Soft, there is no tenderness, rigidity, rebound or guarding, no obvious peritoneal signs, no palpable pulsatile abdominal masses, no auscultated abdominal bruit : No CVAT Extremities: No edema Neuro: No new focal neurological deficits, cranial nerves II through XII intact, 5/5 strength in all present extremities. Intact sensation to light touch in all present extremities, 2+ reflexes bilateral patella tendons. Skin: No rash or lesions noted MEDICAL DECISION MAKING: Chief Complaint: please see HPI External records reviewed: Reviewed prior imaging studies. Reviewed prior problem list. Reviewed current medications Factors affecting care: Hypertension, obesity Social determinants of health: none History obtained from others: none Consults: none [facility] Narrative: The patient was initially hemodynamically stable, slightly tachycardic which improved without intervention from 114-98. Is afebrile. Saturating 91% on room air. He was started on oxygen by nursing was saturating 93% on 2 L. Once the patient was awake you saturating well in the upper 90s on room air. I considered the following differential diagnosis: Pneumonia, COVID, RSV, flu, ACS, arrhythmia, acute pancreatitis, DKA, hyperglycemia, ALL IMAGES (IF OBTAINED) HAVE BEEN PERSONALLY REVIEWED AND INTERPRETED BY MYSELF. I have personally reviewed the patient's chest x-ray. Chest x-ray is unremarkable for pulmonary edema, pneumothorax, pneumonia or focal cardiopulmonary abnormality. D-dimer negative making VTE less likely CBC with leukocytosis suggestive of systemic inflammation, elevated hemoglobin suggestive of hemoconcentration and dehydration, no thrombocytopenia VBG without evidence of metabolic acidosis to suggest DKA BMP without significant electrolyte abnormalities, no acute kidney injury LFTs show no evidence of hepatobiliary pathology. Acetone negative Lipase is wnl indicating no pancreatic inflammation. Urinalysis consistent with poorly controlled blood sugar The synthesis of the patient's history, physical exam, abdomen to suggest likely poorly controlled diabetes and hyperglycemia producing polydipsia, polyuria, dehydration and fatigue. As I was going to reassess patient just prior to him being discharged patient sat up from bed quickly noted dizziness. He then paradoxically got up from bed lowered himself to his knees and fell onto his belly. He not had any obvious head trauma during this fall. He became granado and noted he was warm. He denied chest pain or shortness of breath. Denied headache. Denied focal weakness His blood sugar was checked at this time given he had just received 10 units of IV insulin and his blood sugar was 463. Repeat EKG was obtained this time which showed normal sinus rhythm rate of 98, left axis deviation, no STEMI there is no significant head trauma to warrant a CT scan. Given the patient's elevated blood sugar level concern for near syncope of her syncope and concern that he would not do well at home he was admitted under Dr. Day. The patient and/or family, caregivers express understanding. The patient and/or family, caregivers agrees with the plan. Shared decision making: I will have a discussion with the patient and or visitors regarding risk/benefits of further testing or admission. They will be made aware of of the risk/benefits inherent in this decision they will be given the opportunity to voice understanding. Total critical care time today provided was at least 0 minutes. This excludes separately billable procedures. Critical care time (if documented) is secondary to the patient having high probability of clinically significant/life threatening deterioration in the patient's condition which required my urgent intervention. Impression: 1. Poorly controlled type 2 diabetes 2. Hyperglycemia 3. Polydipsia 4. Polyuria [facility] This note was generated with [employer] dictation software. It may contain incorrect words, spelling, and punctuation that were not noted in review of the chart prior to signing. Lab Data Labs: Laboratory Results - last 24 hr 10/01/24 21:35 WBC 12.5 H RBC 5.67 Hgb 17.9 H Hct 47.9 MCV 84.5 MCH 31.6 MCHC 37.4 H RDW Std Deviation 35.9 RDW Coeff of Sima 12.0 Plt Count 373 MPV 11.9 Immature Gran % (Auto) 0.600 Neut % (Auto) 66.3 Lymph % (Auto) 24.1 [place] % (Auto) 7.3 Eos % (Auto) 1.2 Baso % (Auto) 0.5 Absolute Neuts (auto) 8.3 H Absolute Lymphs (auto) 3.01 Nucleated RBC % 0 D-Dimer Quant (PE/DVT) 0.27 Sodium 132 L Potassium 3.7 Chloride 87 L Carbon Dioxide 24.4 Anion Gap 21 H BUN 20 H Creatinine 1.29 H Estim Creat Clear Calc 79.72 Est GFR (MDRD) Non-Af 65 BUN/Creatinine Ratio 15.6 Glucose 636 H* Calcium 10.6 Total Bilirubin 1.29 AST 29 ALT 49 H Alkaline Phosphatase 144 H Troponin T High Sens 12 Total Protein 8.1 Albumin 4.6 Globulin 3.4 Albumin/Globulin Ratio 1.4 Lipase 33 b-Hydroxybutyric mmol/L 2.3 Urine Color Straw Urine Clarity Clear Urine pH 6.0 Ur Specific [place] 1.010 Urine Protein 15 H Urine Glucose (UA) 1000 H Urine Ketones 50 H Urine Occult Blood 25 H Urine Nitrite Negative Urine Bilirubin Negative Urine Urobilinogen Normal Ur Leukocyte Esterase Negative Urine RBC 0-5 SEEN Urine WBC 0-5 SEEN Ur Squamous Epith Cells 0 SEEN Urine Bacteria 0 SEEN Urine Mucus 0 SEEN ABG Data ABG results: ABG 10/01/24 21:43 Specimen Type KAIT Sample Site Not entered O2 % 21.0 VBG pH 7.49 H VBG pO2 52 H VBG HCO3 29 H VBG Total CO2 30 VBG O2 Sat (Calc) 89 H VBG Base Excess 6 H POC Mix VBG pCO2 Pt Tmp 38.5 L O2 Delivery Device Not entered Radiography Diagnostic Testing: Clinical Impression(s) from Imaging Studies Chest X-Ray 10/01/24 21:41 IMPRESSION: No Acute Findings. Reading Location: [facility] Discharge Plan Triage Chief Complaint: General Illness ED Provider: Raimundo Cee Dx/Rx/DC Orders Prescriptions: No Action hydrochlorothiazide 50 mg tablet 50 mg PO DAILY Patient Comments: TAKE 1 TABLET BY MOUTH EVERY DAY lisinopril 40 mg tablet 40 mg PO DAILY Patient Comments: Take 1 tablet by mouth once daily. diazepam [Valium] 2 mg tablet 2 mg PO TID PRN (Reason: dizziness or vertigo) 3 Days Qty: 12 0RF amoxicillin-pot clavulanate 875-125 mg tablet 1 tab PO BID Qty: 20 0RF Primary Care Provider: Steven Sandy Referrals: Steven Sandy MD [Primary Care Provider] - Activity Restrictions/Additional Instructions: Thank you for trusting us with your care today! Your labs images are consistent with poorly controlled diabetes which reducing your fatigue, excessive thirst and urination. It is imperative that you eat a low carbohydrate diet. This means no rice, pasta, sugar sweetened beverages, desserts, candy, fruit. These foods amongst others which you can look up contain carbohydrates and will increase your blood sugar levels. You should drink plenty of fluids. You should eat lean meat and vegetables. You should take at least a 30-minute walk per day. Please take Tylenol (2 pills, 650 mg), ibuprofen (2 pills, 400 mg) every 6 hours as needed for pain and fever control. Please return to the emergency department if your symptoms change or worsen. Specifically vomiting, have difficulty breathing, develop a fever or severe abdominal pain. Please follow with your primary care physician for further outpatient evaluation and management. Specifically start on additional blood sugar control medications. Print Language: Guatemalan Disposition Disposition: Home, Self Care
--- NOTE | 2024-10-01 21:18 | EKG12_ITS ---
Test Reason : Blood Pressure : */* mmHG Vent. Rate : 99 BPM Atrial Rate : 99 BPM P-R Int : 148 ms QRS Dur : 106 ms QT Int : 354 ms P-R-T Axes : 37 -42 84 degrees QTcB Int : 454 ms Normal sinus rhythm Left axis deviation Minimal voltage criteria for LVH, may be normal variant ( [place] product ) Nonspecific T wave abnormality Abnormal ECG Confirmed by SENDY BAILEY, MIGEL ([id number]), marketing editor MARITO GARCIA ([id number]) on 10/06/2024 9:08:25 AM Referred By: Confirmed By: MIGEL KABA MD
[2024-10-01] MEDS: 0.9% Normal Saline (500mL Bag) 500 ML 999 ML IV (21:37)
--- NOTE | 2024-10-01 21:41 | RAD_ITS ---
PROCEDURE: CHEST 1 VIEW (PORTABLE) 10/01/2024 REASON FOR EXAM: SHORTNESS OF BREATH TECHNIQUE: Frontal view of the chest. COMPARISON: 11/06/2021 FINDINGS: Hardware: Partially imaged right shoulder arthroplasty. Heart: Cardiac and mediastinal contours are stable. Lungs: The lungs are clear. Bones: The bones are unremarkable. Other: RAD/Chest 1 View (Portable) IMPRESSION: No Acute Findings. Reading Location: CT
[2024-10-01 21:46] LABS: Bacteria 0 SEEN /hpf (None Seen); Mucous, Urine 0 SEEN /hpf (<or=2+); Squamous Epithelial Cells - UA 0 SEEN /hpf (0-5)
[2024-10-01 21:48] LABS: Blood Gas Specimen Type VEN; O2 Delivery Device Not entered; SITE Not entered; VBG BASE EXCESS 6 mmol/L (-1.0-3.5); VBG Bicarbonate 29 mmol/L (22-26); VBG PO2 52 mmHg (25-40); VBG SO2 89 % (50-70); VBG TCO2 30 mmol/L (23-33); VBG pCO2 38.5 mmHg (41-51); VBG pH 7.49 (7.32-7.42)
[2024-10-01 21:57] LABS: Color, Urine Straw (Yellow); Glucose, Dipstick 1000 mg/dl (Normal); Ketone-Dipstick 50 mg/dl (Negative); Leukocyte Esterase-Dipstick Negative /ul (Negative); Nitrite-Dipstick Negative (Negative); Occult Blood-Urine 25 /ul (Negative); Protein-Dipstick 15 mg/dl (Negative); Urine Bilirubin Dipstick Negative (Negative); Urine Clarity Clear (Clear); Urine Urobilinogen Normal (Normal)
[2024-10-01 22:00] VITALS: BP 134/92; PULSE 103; RESP 18; TEMP 36.8; O2SAT 94
[2024-10-01 22:11] LABS: Red Blood Cells-Urine 0-5 SEEN /hpf (0-5); White Blood Cells 0-5 SEEN /hpf (0-5)
[2024-10-01 22:19] LABS: Absolute Lymphocyte Count 3.01 X10^3/uL (0.83-4.51); Absolute Neutrophil Count 8.3 X10^3/uL (2.0-7.7); Basophil# 0.06 X10^3/uL; Basophil% 0.5 % (0-1); Eosinophil# 0.15 X10^3/uL; Eosinophils% 1.2 % (0-5); Hematocrit 47.9 % (40-54); Hemoglobin 17.9 g/dL (13.0-16.5); Lymphocyte # 3.01 X10^3/ul (0.83-4.51); Lymphocyte % 24.1 % (19-41); Mean Corp Hgb Conc 37.4 g/dL (32-36); Mean Corpuscular Hgb 31.6 pg (27.0-32.0); Mean Corpuscular Volume 84.5 fL (80-94); Mean Platelet Vol. 11.9 fl (6.2-12.0); Monocyte# 0.91 X10^3/uL; Monocyte% 7.3 % (0-10); NRBC Flagged by Analyzer 0 % (0-5); Neutrophil # 8.31 X10^3/uL (2.7-7.7); Neutrophil % 66.3 % (47-70); Platelet Count 373 K/mm3 (150-450); RBC Distribution Width SD 35.9 fl (35.1-43.9); Red Blood Count 5.67 M/mm3 (4.6-6.2); White Blood Count 12.5 K/mm3 (4.4-11.0)
[2024-10-01 22:33] LABS: BETA-HYDROXYBUTYRATE 2.3 mmol/L (0.0-0.3); Lipase 33 U/L (13-75)
[2024-10-01 22:44] LABS: ALB/GLOB Ratio 1.4 RATIO (0.9-2.4); AST(SGOT) 29 U/L (<=37); Alanine Aminotransfer ALT/SGPT 49 U/L (<=46); Albumin, Serum 4.6 g/dL (3.5-5.0); Alkaline Phosphatase 144 U/L (40-129); Anion Gap 21 (5-15); BUN 20 mg/dL (4-19); BUN/Creat Ratio 15.6 RATIO (10-20); Calcium,Total 10.6 mg/dL (7.6-11.0); Carbon Dioxide 24.4 mmol/L (21.0-32.0); Chloride 87 mmol/L (98-108); Creatinine, Serum 1.29 mg/dL (0.70-1.20); EST Glomerular Filtration Rate 65 (>60); Estimated Creatinine Clearance 79.72 ml/min (50-250); Globulin 3.4 g/dL (2.2-4.2); Glucose 636 mg/dL (70-99); Potassium 3.7 mmol/L (3.3-5.1); Protein, Total 8.1 g/dL (5.9-8.4); Sodium Level 132 mmol/L (133-145); Total Bilirubin 1.29 mg/dL (0.00-1.30)
[2024-10-01 23:00] VITALS: BP 153/78; PULSE 102; RESP 18; TEMP 36.5; O2SAT 98
[2024-10-01 23:11] LABS: Troponin T High Sensitivity 12 ng/L (<=22)
[2024-10-01 23:34] LABS: D-Dimer Quantitative (DVT/PE) 0.27 FEU/ug/m (0.27-0.49)
[2024-10-02] VITALS (13 sets, daily range): BP systolic 98–134; BP diastolic 69–98; PULSE 82–107; RESP 17–22; TEMP 36.6–36.8; O2SAT 88–99; BMI 38.6
[2024-10-02] MEDS: Insulin Lispro 100 UNIT/ML VIAL (ADMELOG) 10 UNIT IV (00:09)
--- NOTE | 2024-10-02 00:44 | EKG12_ITS ---
Test Reason : REPEAT Blood Pressure : */* mmHG Vent. Rate : 98 BPM Atrial Rate : 98 BPM P-R Int : 148 ms QRS Dur : 102 ms QT Int : 392 ms P-R-T Axes : 66 -42 90 degrees QTcB Int : 500 ms Sinus rhythm with Premature atrial complexes Left axis deviation Minimal voltage criteria for LVH, may be normal variant ( [place] product ) Abnormal ECG Confirmed by SENDY BAILEY, MIGEL ([id number]), editor in chief newspaper MARITO GARCIA ([id number]) on 10/06/2024 9:13:59 AM Referred By: Confirmed By: MIGEL KABA MD
[2024-10-02] MEDS: 0.9% Normal Saline (1000mL) 1,000 ML 999 ML IV (00:54)
--- NOTE | 2024-10-02 01:00 | ED.RN ---
Staff respond to Doctor request for assistance. Upon entering room patient observed on his hands and knees on floor. pt was incontinent of urine, sweating c/o of cramp in left side. Staff assisted pt into bed finger stick glucose obtained. patient drowsy, verbally responding to staff questions. EKG obtained. patient denies injury. Doctor at bedside.
[2024-10-02 01:18] LABS: Bedside Glucose 383 mg/dL (74-106)
[2024-10-02 01:18] LABS: Bedside Glucose 463 mg/dL (74-106)
--- NOTE | 2024-10-02 01:22 | PCM.HP.STD ---
HPI - General General Date of Admission: 10/02/24 Date of Service: 10/02/24 Chief Complaint: Malaise HPI Narrative JAYSON LEIJA, is a 54 M with past medical history of poorly controlled type 2 diabetes on oral hypoglycemic agents [metformin and glimepiride], obesity, prior stag[place] kidney stones, MARIA DOLORES, and dyslipidemia who presents to the ED with concerns regarding progressive malaise and weakness with associated cough since last 1 week. He has not been following any specific diet and admits to doing a lot of pop which may have contributed to his uncontrolled sugars. Does not smoke, no alcohol use, no marijuana use. No prior ischemic complications. Over the last few weeks she has been noticing progressive dry mouth, excessive urination, some weight loss and nocturia. Minus preliminary evaluation in the ED with negative he was noted to have obstructive sleep apnea requiring oxygen support and fell asleep. Also, while trying to walk in the ED he had 1 episode of presyncope and fall, did not hit his head at the time. At the time of presentation his blood sugars were in the 600s, vitals were stable with blood pressure of 119/81, pulse 90, respiratory rate 17, with oxygen saturation well on room air when awake. [facility] Medical History (Updated 10/02/24 @ 01:[address] Vasquez Day MD) Hx of vertigo Reconstruction of L face Sleep apnea Kidney stone Hypospadias Hypertension GERD (gastroesophageal reflux disease) Elevated fasting blood sugar Dyslipidemia Home Medications ?Medication ?Instructions ?Recorded ?Last Taken ?Type amoxicillin 875 mg-potassium 1 tab PO BID #20 tabs 11/06/21 Unknown Rx clavulanate 125 mg tablet diazepam 2 mg tablet (Valium) 2 mg PO TID PRN dizziness or 11/06/21 Unknown Rx vertigo 3 days #12 tabs lisinopril 40 mg tablet 40 mg PO DAILY 11/06/21 Unknown History glipizide 10 mg tablet, extended 10 mg PO DAILY 10/02/24 Unknown History release 24 hr hydrochlorothiazide 25 mg tablet 25 mg PO DAILY 10/02/24 Unknown History metformin 1,000 mg tablet 500 mg PO DAILY 10/02/24 Unknown History Allergy/AdvReac Type Severity Reaction Status Date / Time No Known Allergies Allergy Verified 10/01/24 19:38 Family History Brother Testicular cancer Surgical History History of shoulder surgery H/O lithotripsy History of arthroscopy of both knees Social History Smoking Status: Former smoker substance use type: does not use Vital Signs Vital Signs Vital Signs: 10/01/24 19:32 10/01/24 19:40 10/01/24 20:01 Temperature 97.9 F 98 F Temperature Source Temporal Oral Pulse Rate 114 H 111 H Respiratory Rate 18 16 Respiratory Effort Normal Non-Labored Respiratory Pattern Normal Blood Pressure 116/81 H 117/86 H Blood Pressure Mean 92 96 Pulse Ox 91 92 Oxygen Delivery Method Room Air Room Air Oxygen Flow Rate (L/min) 10/01/24 20:40 10/01/24 21:00 10/01/24 22:00 Temperature 98 F 98.2 F 98.2 F Temperature Source Oral Oral Oral Pulse Rate 98 102 H 103 H Respiratory Rate 14 17 18 Respiratory Effort Respiratory Pattern Blood Pressure 114/86 H 129/81 H 134/92 H Blood Pressure Mean 95 97 106 Pulse Ox 93 93 94 Oxygen Delivery Method Nasal Cannula Nasal Cannula Nasal Cannula Oxygen Flow Rate (L/min) 2 2 2 10/01/24 23:00 10/02/24 00:00 10/02/24 00:48 Temperature 97.7 F L 98.0 F Temperature Source Oral Oral Pulse Rate 102 H 100 100 Respiratory Rate 18 17 22 H Respiratory Effort Respiratory Pattern Blood Pressure 153/78 H 125/89 H 98/74 Blood Pressure Mean 103 101 82 Pulse Ox 98 95 99 Oxygen Delivery Method Nasal Cannula Room Air Room Air Oxygen Flow Rate (L/min) 2 10/02/24 01:05 10/02/24 01:08 10/02/24 01:19 Temperature 98.3 F Temperature Source Pulse Rate 93 93 90 Respiratory Rate 18 18 17 Respiratory Effort Respiratory Pattern Blood Pressure 98/69 98/69 119/81 H Blood Pressure Mean 78 78 93 Pulse Ox 90 90 93 Oxygen Delivery Method Room Air Nasal Cannula Oxygen Flow Rate (L/min) 2 Weight Weight: 253 lb 14.4 oz Body Mass Index (BMI) 38.6 Physical Exam Const alert, oriented x3, no apparent distress, average body habitus and healthy appearing HEENT normocephalic and head/scalp atraumatic Eyes PERRL and EOMs intact bilaterally Neck no lymphadenopathy and supple Resp normal respiratory effort and no retractions Cardio regular rate and regular rhythm GI normal to inspection, nondistended, normoactive bowel sounds Extremity normal to inspection Neuro oriented x3 Psych affect normal Results Medical Records Data Attestation: I reviewed the patient's medical records Lab / Micro Data Attestation: I reviewed the patient's lab results. 10/01/24 21:35 10/01/24 21:35 Labs: Laboratory Results - last 24 hr 10/01/24 21:35: WBC 12.5 H, RBC 5.67, Hgb 17.9 H, Hct 47.9, MCV 84.5, MCH 31.6, MCHC 37.4 H, RDW Std Deviation 35.9, RDW Coeff of Sima 12.0, Plt Count 373, MPV 11.9, Immature Gran % (Auto) 0.600, Neut % (Auto) 66.3, Lymph % (Auto) 24.1, [place] % (Auto) 7.3, Eos % (Auto) 1.2, Baso % (Auto) 0.5, Absolute Neuts (auto) 8.3 H, Absolute Lymphs (auto) 3.01, Nucleated RBC % 0, D-Dimer Quant (PE/DVT) 0.27, Sodium 132 L, Potassium 3.7, Chloride 87 L, Carbon Dioxide 24.4, Anion Gap 21 H, BUN 20 H, Creatinine 1.29 H, Estim Creat Clear Calc 79.72, Est GFR (MDRD) Non-Af 65, BUN/Creatinine Ratio 15.6, Glucose 636 H*, Calcium 10.6, Total Bilirubin 1.29, AST 29, ALT 49 H, Alkaline Phosphatase 144 H, Troponin T High Sens 12, Total Protein 8.1, Albumin 4.6, Globulin 3.4, Albumin/Globulin Ratio 1.4, Lipase 33, b-Hydroxybutyric mmol/L 2.3, Urine Color Straw, Urine Clarity Clear, Urine pH 6.0, Ur Specific [place] 1.010, Urine Protein 15 H, Urine Glucose (UA) 1000 H, Urine Ketones 50 H, Urine Occult Blood 25 H, Urine Nitrite Negative, Urine Bilirubin Negative, Urine Urobilinogen Normal, Ur Leukocyte Esterase Negative, Urine RBC 0-5 SEEN, Urine WBC 0-5 SEEN, Ur Squamous Epith Cells 0 SEEN, Urine Bacteria 0 SEEN, Urine Mucus 0 SEEN 10/02/24 00:40: POC Glucose 463 H* 10/02/24 01:00: POC Glucose 383 H Micro: Microbiology 10/01/24 21:35 Mucosa - Nose SARS-CoV-2, Influenza & RSV (PCR) - Final ABG Data ABG results: ABG 10/01/24 21:43 Specimen Type KAIT Sample Site Not entered O2 % 21.0 VBG pH 7.49 H VBG pO2 52 H VBG HCO3 29 H VBG Total CO2 30 VBG O2 Sat (Calc) 89 H VBG Base Excess 6 H POC Mix VBG pCO2 Pt Tmp 38.5 L O2 Delivery Device Not entered Imaging Radiology Impression Chest X-Ray 10/01/24 21:41 IMPRESSION: No Acute Findings. Reading [facility] Assessment & Plan Assessment/Plan (1) Hyperglycemia: PLAN: Plan 54-year-old male with history of type 2 diabetes poorly controlled presents to the ED with concerns regarding prior bronchitis and was noted to have severe hyperglycemia and 1 episode of presyncope in the ED. The likely reason for his presyncopal episode is poorly controlled diabetes with ongoing hydrochlorothiazide therapy for hypertension resulting in excessive diuresis. #Type 2 diabetes - Follow-up on HbA1c levels - Insulin per sliding scale: Will transition to subcu insulin at the time of discharge - Hold oral hypoglycemic agents for now - Nutrition consult for diabetes education, presently patient is not following any calorie restricted diet #Dehydration - Received fluid therapy in the ED - Volume status will improve after hyperglycemia is corrected - Withhold hydrochlorothiazide #Presyncopal episode - Likely related to dehydration - Physical therapy evaluation tomorrow, if similar episodes we will consider echocardiogram/Holter monitoring to rule out arrhythmia, pretest probability is very low at this time #Bronchitis - No features of respiratory failure at this time -Will continue to monitor #Prerenal ANA CRISTINA - Elevated BUN and creatinine levels - From likely because of the diuresis and hyperglycemia - Repeat kidney function test tomorrow to monitor improvement #MARIA DOLORES - Outpatient sleep study - Management of obesity, can consider GLP-1 analogs for diabetes as well as obesity #DVT prophylaxis - Enoxaparin 40 mg subcutaneous daily #Full code
[2024-10-02 01:50] LABS: Bedside Glucose 345 mg/dL (74-106)
[2024-10-02] MEDS: Insulin Lispro 100 UNIT/ML INSULN.PEN SC ×5 (02:21→22:06)
[2024-10-02 02:41] LABS: Bedside Glucose 341 mg/dL (74-106)
[2024-10-02 05:55] LABS: Absolute Lymphocyte Count 2.44 X10^3/uL (0.83-4.51); Absolute Neutrophil Count 8.6 X10^3/uL (2.0-7.7); Basophil# 0.04 X10^3/uL; Basophil% 0.3 % (0-1); Eosinophils% 1.6 % (0-5); Hematocrit 45.4 % (40-54); Hemoglobin 16.3 g/dL (13.0-16.5); Lymphocyte # 2.44 X10^3/ul (0.83-4.51); Mean Corp Hgb Conc 35.9 g/dL (32-36); Mean Corpuscular Hgb 30.9 pg (27.0-32.0); Mean Corpuscular Volume 86.1 fL (80-94); Mean Platelet Vol. 11.8 fl (6.2-12.0); Monocyte# 0.85 X10^3/uL; NRBC Flagged by Analyzer 0 % (0-5); Neutrophil # 8.61 X10^3/uL (2.7-7.7); Neutrophil % 70.6 % (47-70); Platelet Count 300 K/mm3 (150-450); RBC Distribution Width CV 12.2 % (11.6-14.6); RBC Distribution Width SD 37.9 fl (35.1-43.9); Red Blood Count 5.27 M/mm3 (4.6-6.2); White Blood Count 12.2 K/mm3 (4.4-11.0)
[2024-10-02 06:02] LABS: Prothrombin Time (Protime)PT. 13.2 SECONDS (11.7-14.9)
[2024-10-02 06:27] LABS: Bedside Glucose 327 mg/dL (74-106)
[2024-10-02 06:51] LABS: Hemoglobin A1c 12.4 % (<=5.6)
[2024-10-02 06:58] LABS: ALB/GLOB Ratio 1.4 RATIO (0.9-2.4); AST(SGOT) 22 U/L (<=37); Alanine Aminotransfer ALT/SGPT 39 U/L (<=46); Albumin, Serum 4.1 g/dL (3.5-5.0); Alkaline Phosphatase 119 U/L (40-129); Anion Gap 15 (5-15); BUN 20 mg/dL (4-19); BUN/Creat Ratio 18.4 RATIO (10-20); Bilirubin, Direct 0.27 mg/dL (0.00-0.30); Calcium,Total 9.6 mg/dL (7.6-11.0); Chloride 96 mmol/L (98-108); Creatinine, Serum 1.09 mg/dL (0.70-1.20); EST Glomerular Filtration Rate 80 (>60); Estimated Creatinine Clearance 94.36 ml/min (50-250); Globulin 2.9 g/dL (2.2-4.2); Glucose 354 mg/dL (70-99); Magnesium 2.4 mg/dL (1.5-2.2); Phosphorus 3.9 mg/dL (2.7-4.5); Potassium 3.4 mmol/L (3.3-5.1); Sodium Level 137 mmol/L (133-145); Thyroid Stim Hormone (TSH) 0.822 uIU/mL (0.300-4.200); Total Bilirubin 0.93 mg/dL (0.00-1.30)
[2024-10-02] MEDS: Enoxaparin 40 MG/0.4 ML Syringe SC (09:46)
[2024-10-02] MEDS: Lisinopril 40 MG Tablet PO (09:46)
[2024-10-02] MEDS: Pantoprazole Sodium 40 MG Tablet PO ×2 (10:05→22:07)
[2024-10-02 11:13] LABS: Bedside Glucose 329 mg/dL (74-106)
--- NOTE | 2024-10-02 12:29 | CASEMGMT ---
BENJAMIN BORREGO Assessment Face to Face with patient for initial transition planning/care coordination assessment. BENJAMIN BORREGO introduced self and role at [facility], pt voices understanding. Pt is A&Ox4 and is resting comfortably in bed and is calm. Care providers, pharmacy, and demographics verified. Admitting dx: Hyperglycemia LACE Strata: 1 PCP: Steven Sandy Specialists: Denies. Pt was educated about local Endocrinology through Dr. Cuevas Preferred Pharmacy: [facility] Insurance: [employer]. Pt reports that this will be changing to MMO at the end of the month Prescription Benefit: Yes LNOK: Katherine (W) Living Arrangements: Pt lives with his and 2 children (Ages 16 and 17) in a single story home with 2 steps to enter ADLs/IADLs: Ind Transportation: Self, denies concerns DME: Pt reports that he has a CPAP through [employer]. Pt states that he has a functioning BGM with sufficient supplies. Pt also reports that he has a BP machine and an inhaler. Pt was educated about pulse ox purchasing options. Pt is currently requiring additional oxygen and may qualify for home oxygen use. A verbal list of local in-network DME companies were provided to the pt at this time. Pt prefers [employer].? HHC/SNF: Denies Pt?s goal: Home Plan: Home with pt's family, anticipate no additional needs. Pt states that he has vertigo. However, pt denies OP Vestibular therapy. Pt states, I am too busy. 6-Click score is 24. Pt plans to DC home once medically ready and denies further questions or concerns at this time. Follow for potential oxygen needs. Report given to ALLYSON ALEXANDER CM. Marianne Lopez RN, CM
[2024-10-02] MEDS: Insulin Glargine-YFGN 100 UNIT/ML Pen 20 UNIT SC ×2 (12:33→17:25)
[2024-10-02 16:50] LABS: Bedside Glucose 450 mg/dL (74-106)
--- NOTE | 2024-10-02 17:57 | PCM.HOSP.N ---
Hospitalist Note Patient was seen and examined today, he feels that his sugar is elevated due to the fact he was eating popsicles recently, it appears the patient's A1c is highly elevated however and I think is type 2 diabetes is not controlled on oral medication. Patient's blood sugars have been high today, initially told him that he might be able to go home this afternoon but it appears that he will have to be on insulin rather than oral medications. Patient also has evidence of thrush according to nursing, I will start him on nystatin swish and swallow.
[2024-10-02] MEDS: NYSTATIN 500,000 UNIT/5 ML UDC 500000 UNIT PO ×2 (18:19→22:07)
[2024-10-02 22:31] LABS: Bedside Glucose 231 mg/dL (74-106)
[2024-10-03 02:10] VITALS: BP 114/80; PULSE 87; RESP 16; TEMP 36.6; O2SAT 95
[2024-10-03 04:35] LABS: Bedside Glucose 156 mg/dL (74-106)
[2024-10-03] MEDS: Insulin Lispro 100 UNIT/ML INSULN.PEN SC ×2 (06:06→12:07)
[2024-10-03 06:24] LABS: Bedside Glucose 197 mg/dL (74-106)
[2024-10-03 10:04] VITALS: BP 112/82; PULSE 95; RESP 16; TEMP 36.8; O2SAT 95
[2024-10-03] MEDS: Insulin Glargine-YFGN 100 UNIT/ML Pen 20 UNIT SC (10:24)
[2024-10-03] MEDS: NYSTATIN 500,000 UNIT/5 ML UDC 500000 UNIT PO ×2 (10:26→14:02)
[2024-10-03] MEDS: Lisinopril 40 MG Tablet PO (10:28)
[2024-10-03] MEDS: Pantoprazole Sodium 40 MG Tablet PO (10:28)
[2024-10-03 12:50] LABS: Bedside Glucose 320 mg/dL (74-106)
[2024-10-03 13:54] VITALS: BP 98/81; PULSE 105; RESP 16; TEMP 37; O2SAT 95
--- NOTE | 2024-10-03 14:02 | DCINST_ITS ---
Discharge Instructions Diet Discharge Diet: 1800 Calorie Control Diet DC O2, CPAP, BIPAP needs Home O2 Discharge instructions: No Dressing / Incision Discharge Activity: Return to Normal Activity Weight Bearing Status: Full weight bearing Follow Up Care Test Results: Test results from this visit will be discussed in further detail at your follow- up appointment, if applicable. Discharge Plan Admission Admit Date/Time: 10/02/24 01:17 Primary Reason for Your Visit: Uncontrolled type 2 diabetes Attending Provider: Yonatan Rosas Primary Care Provider: Steven Sandy Consulting Providers: Vasquez Day Instructions Additional Instructions / Restrictions: Check your blood sugars 3 times a day, write down your readings and take the readings with you to your office visit with your primary care doctor within 2 weeks Discharge Orders/Prescriptions Prescriptions: New insulin glargine-yfgn 100 unit/mL (3 mL) Insulin Pen 25 unit subcut DAILY Qty: 15 0RF nystatin 100,000 unit/mL Suspension 500,000 unit PO 4X/DAY Qty: 150 0RF pantoprazole 40 mg Tablet,Delayed Release (Dr/Ec) 40 mg PO DAILY Qty: 30 0RF metformin 500 mg tablet 500 mg PO BID Qty: 60 0RF (DME) pen needle, diabetic 31 gauge x 1/3 needle See Rx Instructions .Route Qty: 100 0RF Rx Instructions: As directed lisinopril 10 mg tablet 10 mg PO DAILY Qty: 30 0RF Discontinued lisinopril 40 mg tablet 40 mg PO DAILY Patient Comments: Take 1 tablet by mouth once daily. metformin 1,000 mg tablet 500 mg PO DAILY glipizide 10 mg tablet extended release 24hr 10 mg PO DAILY hydrochlorothiazide 25 mg tablet 25 mg PO DAILY Referrals / Follow Up: Steven Sandy MD [Primary Care Provider] - Within 2 Weeks Disposition Disposition (needs filled in before D/C Order can be placed): Home, Self Care
--- NOTE | 2024-10-03 14:25 | DS.PCM_ITS ---
Providers Date of Admission: 10/02/24 Date of Discharge: 10/03/24 Primary Care Physician: Dr. Steven Sandy MD Reason For Visit: HYPERGLYCEMIA Diagnosis Discharge Diagnosis (1) Hyperglycemia: Status: Acute Code(s): R73.9 - Hyperglycemia, unspecified Plan 1. Severe hyperglycemia secondary to uncontrolled type 2 diabetes #2 dehydration secondary to hyperglycemia ANA CRISTINA was not present Medications at Discharge Home Medications insulin glargine-yfgn 100 unit/mL (3 mL) subcutaneous pen 25 unit (0.25 mL) subcut DAILY #15 mL 10/03/24 lisinopril 10 mg tablet 10 mg PO DAILY #30 tabs 10/03/24 metformin 500 mg tablet 500 mg PO BID #60 tabs 10/03/24 nystatin 100,000 unit/mL oral suspension 500,000 unit (5 mL) PO 4X/DAY #150 mL 10/03/24 pantoprazole 40 mg tablet,delayed release 40 mg PO DAILY #30 tabs 10/03/24 pen needle, diabetic 31 gauge x 1/3 #100 ea 10/03/24 Hospital Course Operations None Procedures None Summary of Care Provided Minutes Spent on Discharge: 31 Hospital Course: This 54-year-old white male was seen in the emergency room at [facility] with complaints of diffuse weakness, dry mouth, fatigue, and thirst. Patient noted increased urination. Patient has a history of type 2 diabetes and is on oral medications. Labs obtained showed a white blood cell count of 12.5, sodium was 132, creatinine was 1.29, BUN was 20, and glucose was 636. Patient had a venous blood gas obtained which did not show acidosis, patient's anion gap was elevated at 21. Patient was not felt to be in DKA, he was admitted to [place] [address] and placed on sliding scale insulin. Patient's blood sugar decreased and he was switched to basal insulin with sliding scale insulin. Patient's hemoglobin A1c was noted to be over 12 which indicated insufficient control of his diabetes over the last 3 months. On 10/03/2024, patient was seen and examined: On examination he appeared in good health and spirits. Vital signs as documented. Skin warm and dry and without overt rashes. Neck without JVD, neck was supple, trachea midline, thyroid was normal. Lungs clear bilaterally, normal air movement was noted. Heart exam notable for regular rhythm, normal sounds and absence of murmurs, rubs or gallops. Abdomen unremarkable and without evidence of organomegaly, masses, or abdominal aortic enlargement. Bowel sounds are present, abdomen is not distended. Extremities nonedematous, no cyanosis was noted, no clubbing was noted. Neuro: Cranial nerves II through XII are grossly intact, no focal motor deficits were noted, sensation to light touch and pinprick intact, motor exam 5/5 throughout. Psych: Patient is alert and oriented x3, he does not appear anxious or depressed, he does not appear agitated. Patient was discharged home in stable condition on 10/03/2024, his insurance would not grain picker the entire amount of his Lantus insulin so this was changed to Humulin N pen insulin at 20 units twice a day subcu. Weight / BMI Weight Weight: 115.2 kg Body Mass Index (BMI) 38.6 ABG / Lab / Microbiology Data 10/02/24 05:18 10/02/24 05:18 Laboratory: Laboratory Results - last 24 hr 10/02/24 16:29: POC Glucose 450 H 10/02/24 22:06: POC Glucose 231 H 10/03/24 04:18: POC Glucose 156 H 10/03/24 06:04: POC Glucose 197 H 10/03/24 11:07: POC Glucose 320 H Microbiology: Microbiology 10/01/24 21:35 Mucosa - Nose SARS-CoV-2, Influenza & RSV (PCR) - Final D/C Instructions Discharge Diet: 1800 Calorie Control Diet Weight Bearing Status: Full weight bearing DC O2, CPAP, BIPAP Needs Home O2 Discharge instructions: No Meaningful Use Info Meaningful Use Meaningful Use Diagnoses (Choose all that apply): None applicable Ischemic Stroke Statin Dosing Therapy Reference: STATIN DOSE THERAPY REFERENCE: * Patients > 75 years receive moderate or high dose statin therapy. * Patients 75 years or YOUNGER should receive HIGH intensity statin dose unless contraindicated. You will be required to document reason for non-treatment if statin daily dose does not meet guidelines. HIGH DOSE STATIN THERAPY DAILY Atorvastatin > than or = to 40 mg Rosuvastatin > than or = to 20 mg Amlodipine + Atorvastatin > than or = to 2.5/40 mg Ezetimibe + Simvastatin 10/80 mg Simvastatin 80mg Discharge Plan Admission Admit Date/Time: 10/02/24 01:17 Primary Reason for Your Visit: Uncontrolled type 2 diabetes Attending Provider: Yonatan Rosas Primary Care Provider: Steven Sandy Consulting Providers: Vasquez Day Instructions Additional Instructions / Restrictions: Check your blood sugars 3 times a day, write down your readings and take the readings with you to your office visit with your primary care doctor within 2 weeks Discharge Orders/Prescriptions Prescriptions: New insulin glargine-yfgn 100 unit/mL (3 mL) Insulin Pen 25 unit subcut DAILY Qty: 15 0RF nystatin 100,000 unit/mL Suspension 500,000 unit PO 4X/DAY Qty: 150 0RF pantoprazole 40 mg Tablet,Delayed Release (Dr/Ec) 40 mg PO DAILY Qty: 30 0RF metformin 500 mg tablet 500 mg PO BID Qty: 60 0RF (DME) pen needle, diabetic 31 gauge x 1/3 needle See Rx Instructions .Route Qty: 100 0RF Rx Instructions: As directed lisinopril 10 mg tablet 10 mg PO DAILY Qty: 30 0RF Discontinued lisinopril 40 mg tablet 40 mg PO DAILY Patient Comments: Take 1 tablet by mouth once daily. metformin 1,000 mg tablet 500 mg PO DAILY glipizide 10 mg tablet extended release 24hr 10 mg PO DAILY hydrochlorothiazide 25 mg tablet 25 mg PO DAILY Referrals / Follow Up: Steven Sandy MD [Primary Care Provider] - Within 2 Weeks Disposition Disposition (needs filled in before D/C Order can be placed): Home, Self Care Charges/Coding Visit Charges Inpatient E&M: 61814 Disch Hosp >30min
--- NOTE | 2024-10-03 15:10 | PHA.DC.MC.R ---
Pharmacy [facility] has performed discharge medication reconciliation and counseling for this patient. The patient's discharge medication list was reviewed for discrepancies and discrepancies were resolved. The patient was counseled on the following discharge medications and changes in medications for homegoing were reviewed. The Reason for Use, instructions for use, and potential side effects were reviewed for all new medications. The patient's questions regarding all of their medications were answered. 1. Insulin glargine 25 units SC daily 2. Lisinopril 10 mg PO daily 3. Metformin 500 mg PO BID 4. Nystatin 100,000 unit/mL oral suspension 5 mL 4x/day 5. Pantoprazole 40 mg PO daily The patient was able to verbally demonstrate an understanding of their discharge medications. Medications at Discharge Home Medications insulin glargine-yfgn 100 unit/mL (3 mL) subcutaneous pen 25 unit (0.25 mL) subcut DAILY #15 mL 10/03/24 lisinopril 10 mg tablet 10 mg PO DAILY #30 tabs 10/03/24 metformin 500 mg tablet 500 mg PO BID #60 tabs 10/03/24 nystatin 100,000 unit/mL oral suspension 500,000 unit (5 mL) PO 4X/DAY #150 mL 10/03/24 pantoprazole 40 mg tablet,delayed release 40 mg PO DAILY #30 tabs 10/03/24 pen needle, diabetic 31 gauge x 1/3 #100 ea 10/03/24
--- NOTE | 2024-10-03 15:47 | CASEMGMT ---
Addendum entered by Allie Katz 10/03/24 17:27: Call placed to [facility] [place] pharmacy. Humulin N has been processed through pt's insurance and cost for a 30-day supply is $35 per pharmacy and it is ready to be picked up. Call placed to pt and he was made aware. He voices appreciation. He states he can corn picker his new Rx's this evening. Original Note: BENJAMIN BORREGO NOTE: Insulin glargine and pen needles have been e-scribed to ERN. Call placed to [facility] [place] for almanza check. Insulin glargine is $388.33 and goes towards his deductible. Pen needles are $55.25. Call placed to [facility] @ [phone] and spoke w/termite control service representative @ the pharmacy help desk. Discussed many other alternatives to insulin glargine, including lantus, basaglar, semglee, abasaglar, and toujeo. Per termite control service representative either these are not in formulary or cost is greater than the insulin glargine. Inquired about Novolin N. She states Novolin N Flexpen would be $106 @ [facility]. BENJAMIN BORREGO placed call back to pt and he was made aware. Also made aware of OTC option for Novolin N vial @ [facility]. He prefers the pen and states can afford the $106 for Novolin N and needles for $55.25. Dr Rosas made aware and states will prescribe the Novolin N flexpen @ [facility]. Pt made aware. Isabel ALVARADO RN, CM
== END 2024-10-03 15:24 | disposition home or self-care (01) | DRG 638 ==
LOC: ED 10-02 00:35 → MS3 10-02 05:24
PROVIDERS: Admitting Provider Internal Medicine; Emergency Provider Emergency Medicine; PCP Family Medicine; Visit Provider Internal Medicine
DX: E11.65 Type 2 diabetes mellitus with hyperglycemia (principal); N17.9 Acute kidney failure, unspecified; I10 Essential (primary) hypertension; E66.9 Obesity, unspecified; G47.33 Obstructive sleep apnea (adult) (pediatric); E78.5 Hyperlipidemia, unspecified; J40 Bronchitis, not specified as acute or chronic; E86.0 Dehydration; R35.1 Nocturia; R53.1 Weakness; R55 Syncope and collapse; R53.81 Other malaise; R35.89 Other polyuria; Z87.891 Personal history of nicotine dependence; Z79.84 Long term (current) use of oral hypoglycemic drugs; Z79.899 Other long term (current) drug therapy; Z68.38 Body mass index [BMI] 38.0-38.9, adult; Z98.890 Other specified postprocedural states
CPT/HCPCS: 36415; 71045; 80053; 81001; 82010; 82248; 82803; 82962; 83036; 83690; 83735; 84100; 84443; 84484; 85025; 85379; 85610; 87631; 93005; 97162; 97802; 99285; A4216